=== PATIENT | female | born 1940 | race Caucasian/White ===

== ENCOUNTER 2021-10-27 19:26 | Inpatient (IN) | payer MEDICARE ==
[~2021-10-27] VITALS: Ht 165.1 cm; Wt 71.5 kg
[2021-10-27] MEDS ORDERED: MORPHINE SULFATE 4 MG/ML SYR/VIAL IV ONE (22:00)
[2021-10-27 22:05] LABS: Basophils # (auto) 0 10 ^3/uL (0-0.2); Basophils % (auto) 0.7 % (0.0-2.0); Eosinophils # (auto) 0.1 10 ^3/uL (0-0.8); Eosinophils % (auto) 1.4 % (0.0-7.0); Hematocrit 31.1 % (36.0-46.0); Hemoglobin 10.4 g/dL (12.2-16.2); Lymphocytes # (auto) 1.1 10 ^3/uL (0.4-5.4); Lymphocytes % (auto) 15.3 % (10.0-50.0); Mean Corpuscular Hemoglobin 28.8 pg (28.0-32.0); Mean Corpuscular Hgb Conc. 33.4 g/dL (32.0-36.0); Mean Corpuscular Volume 86.2 fL (80.0-100.0); Monocytes # (auto) 0.4 10 ^3/uL (0-1.3); Monocytes % (auto) 4.9 % (0.0-12.0); Neutrophils # (auto) 5.6 10 ^3/uL (1.6-8.6); Neutrophils % (auto) 77.7 % (37.0-80.0); Nucleated Red Blood Cells % 0.1 %; Red Blood Cells 3.61 10^6/uL (4.0-5.20); White Blood Cell 7.2 10^3/uL (4.4-10.8)
[2021-10-27 22:22] LABS: Albumin 3.5 g/dL (3.4-5.0); Calcium 8.7 mg/dL (8.5-10.1); Magnesium 2.9 mg/dL (1.6-2.6); Potassium 3.9 mmol/L (3.5-5.1)
[2021-10-27 22:28] LABS: INR 0.99 (0.9-1.15); Partial Thromboplastin Time 36.4 sec (23.6-33.0)
[2021-10-27 22:34] LABS: BUN/Creatinine Ratio 13.7; Bilirubin, Total 0.5 mg/dL (0.2-1.0); Total Protein 6.9 g/dL (6.4-8.2)
[2021-10-27] MEDS ORDERED: ASPirin 81 mg TAB PO ONE (22:45)
[2021-10-27] MEDS ORDERED: SODIUM CHLORIDE 0.9% 1,000 ML IV ONE (22:45)
[2021-10-27] MEDS ORDERED: NITROGLYCERIN 0.4 MG SL TAB SL PRN (23:00)
[2021-10-27] MEDS ORDERED: MORPHINE SULFATE INJECTION 2 MG/ML SYRG IV PRN (23:00)
[2021-10-27] MEDS ORDERED: METOPROLOL TARTRATE 25 MG TAB PO ONE (23:00)
[2021-10-27] MEDS ORDERED: ACETAMINOPHEN 325 MG TAB PO PRN (23:00)
[2021-10-27] MEDS ORDERED: DEXTROSE (50%) 50ML SYRG IV PRN (23:00)
[2021-10-28] MEDS: ONDANSETRON HCL 4 MG/2 ML VIAL IV PRN (00:40)
[2021-10-28 06:21] VITALS: BP 143/68
[2021-10-28] MEDS: ACCU-CHEK COMFORT CURVE STRIP VI SCH ×4 (06:45→22:30)
[2021-10-28] MEDS: InsuLIN REG 1unit/0.01ml Soln (100units/ml) SC SCH ×4 (06:45→22:40)
[2021-10-28 09:00] VITALS: BP 143/67
[2021-10-28 09:17] LABS: Basophils # (auto) 0 10 ^3/uL (0-0.2); Basophils % (auto) 0.8 % (0.0-2.0); Eosinophils # (auto) 0.1 10 ^3/uL (0-0.8); Eosinophils % (auto) 1.4 % (0.0-7.0); Hematocrit 30.4 % (36.0-46.0); Hemoglobin 10.2 g/dL (12.2-16.2); Lymphocytes # (auto) 0.8 10 ^3/uL (0.4-5.4); Lymphocytes % (auto) 16.2 % (10.0-50.0); Mean Corpuscular Hemoglobin 29.3 pg (28.0-32.0); Mean Corpuscular Hgb Conc. 33.4 g/dL (32.0-36.0); Mean Corpuscular Volume 87.7 fL (80.0-100.0); Monocytes # (auto) 0.2 10 ^3/uL (0-1.3); Monocytes % (auto) 5.1 % (0.0-12.0); Neutrophils # (auto) 3.6 10 ^3/uL (1.6-8.6); Neutrophils % (auto) 76.5 % (37.0-80.0); Nucleated Red Blood Cells % 0.1 %; Red Blood Cells 3.47 10^6/uL (4.0-5.20); White Blood Cell 4.7 10^3/uL (4.4-10.8)
[2021-10-28] MEDS: VALSARTAN 80 MG TAB PO SCH (09:20)
[2021-10-28] MEDS: ASPirin 81 mg TAB PO SCH (09:20)
[2021-10-28] MEDS: FUROSEMIDE 20 MG TAB PO SCH (09:20)
[2021-10-28] MEDS: APIXABAN 5 MG TAB PO SCH ×2 (09:20→22:29)
[2021-10-28] MEDS: METOPROLOL TARTRATE 25 MG TAB PO SCH ×2 (09:21→22:30)
[2021-10-28] MEDS: PANTOPRAZOLE 40 MG TAB PO SCH (09:21)
[2021-10-28 09:39] LABS: BUN/Creatinine Ratio 14.2; Calcium 8.4 mg/dL (8.5-10.1); Potassium 4.1 mmol/L (3.5-5.1)
[2021-10-28 12:00] VITALS: BP 122/68
[2021-10-28] MEDS ORDERED: HYDROcodone-ACET 5/325MG TAB PO PRN (12:30)
[2021-10-28 12:57] LABS: Cholesterol 113 mg/dL (< 200); HDL Cholesterol 42 mg/dL (40-59); LDL Cholesterol 50 mg/dL (< 100); Triglycerides 161 mg/dL (< 150)
[2021-10-28 16:28] VITALS: BP 128/63
[2021-10-28 17:26] LABS: Urine Bacteria NONE SEEN /hpf (None Seen); Urine Blood Negative /uL (Negative); Urine Specific Gravity 1.003 (1.001-1.035); Urine WBC <1 /hpf (0 - 5)
[2021-10-28 22:00] VITALS: BP 132/64
[2021-10-28] MEDS: ATORVASTATIN 20 MG TAB PO SCH (22:29)
[2021-10-28] MEDS: HYDROcodone-ACET 5/325MG TAB PO PRN (22:30)
[2021-10-29 05:00] VITALS: BP 146/67
[2021-10-29] MEDS: HYDROcodone-ACET 5/325MG TAB PO PRN (06:04)
[2021-10-29] MEDS: ACCU-CHEK COMFORT CURVE STRIP VI SCH ×4 (06:52→21:07)
[2021-10-29] MEDS: InsuLIN REG 1unit/0.01ml Soln (100units/ml) SC SCH ×4 (06:54→21:09)
[2021-10-29 09:00] VITALS: BP 139/73
[2021-10-29] MEDS: ASPirin 81 mg TAB PO SCH (09:24)
[2021-10-29] MEDS: APIXABAN 5 MG TAB PO SCH ×2 (09:25→21:12)
[2021-10-29] MEDS: VALSARTAN 80 MG TAB PO SCH (09:25)
[2021-10-29] MEDS: FUROSEMIDE 20 MG TAB PO SCH (09:25)
[2021-10-29] MEDS: PANTOPRAZOLE 40 MG TAB PO SCH (09:26)
[2021-10-29] MEDS: METOPROLOL TARTRATE 25 MG TAB PO SCH ×2 (09:26→21:18)
[2021-10-29] MEDS: ONDANSETRON HCL 4 MG/2 ML VIAL IV PRN (09:56)
[2021-10-29] MEDS ORDERED: MIDAZOLAM HCL 2MG/2ML 2ml VIAL (1mg/ml) IV ONE (10:15)
[2021-10-29 17:00] VITALS: BP 129/49
[2021-10-29] MEDS: ATORVASTATIN 20 MG TAB PO SCH (21:12)
[2021-10-29 21:55] VITALS: BP 147/69
[2021-10-30 05:27] VITALS: BP 128/56
[2021-10-30] MEDS: ACCU-CHEK COMFORT CURVE STRIP VI SCH (05:56)
[2021-10-30] MEDS: InsuLIN REG 1unit/0.01ml Soln (100units/ml) SC SCH (06:02)
[2021-10-30 08:00] VITALS: BP 132/89
[2021-10-30 08:45] VITALS: BP 132/69
[2021-10-30] MEDS: VALSARTAN 80 MG TAB PO SCH (10:01)
[2021-10-30] MEDS: APIXABAN 5 MG TAB PO SCH (10:01)
[2021-10-30] MEDS: ASPirin 81 mg TAB PO SCH (10:01)
[2021-10-30] MEDS: PANTOPRAZOLE 40 MG TAB PO SCH (10:02)
[2021-10-30] MEDS: FUROSEMIDE 20 MG TAB PO SCH (10:02)
[2021-10-30] MEDS: METOPROLOL TARTRATE 25 MG TAB PO SCH (10:02)
[2021-10-30 11:11] VITALS: BP 128/67
== END 2021-10-30 12:00 | disposition home or self-care (01) | DRG 303 ==
LOC: ER 19:26 → EDBD 19:26 → TELE 22:57 → TELE-WESTW 10-28 05:40
PROVIDERS: ADMIT Nurse Practitioner; ATTEND Family Medicine
PROC: B24BZZ4 Ultrasonography of Heart with Aorta, Transesophageal (ICD-10-PCS; principal; 2021-10-29)
DX: I25.110 Atherosclerotic heart disease of native coronary artery with unstable angina pectoris (principal); N17.9 Acute kidney failure, unspecified; D64.9 Anemia, unspecified; E11.21 Type 2 diabetes mellitus with diabetic nephropathy; E11.40 Type 2 diabetes mellitus with diabetic neuropathy, unspecified; E78.00 Pure hypercholesterolemia, unspecified; I10 Essential (primary) hypertension; Z20.822 Contact with and (suspected) exposure to COVID-19; Z86.73 Personal history of transient ischemic attack (TIA), and cerebral infarction without residual deficits; Z95.0 Presence of cardiac pacemaker; Z88.0 Allergy status to penicillin; Z88.2 Allergy status to sulfonamides
CPT/HCPCS: 36415; 71045; 80048; 80053; 80061; 81001; 82962; 83735; 83880; 84443; 84484; 85025; 85379; 85610; 85730; 87426; 93005; 93306; 93312; 96361; 96374; 96375; 99152; G0378; J1815; J2250; J2405

== ENCOUNTER → 2022-01-05 | Outpatient (CLI) | payer MEDICARE ==
[2022-01-05 14:31] LABS: Basophils # (auto) 0.1 10 ^3/uL (0-0.2); Basophils % (auto) 1.6 % (0.0-2.0); Eosinophils # (auto) 0.2 10 ^3/uL (0-0.8); Eosinophils % (auto) 3.3 % (0.0-7.0); Hematocrit 33.7 % (36.0-46.0); Hemoglobin 11.3 g/dL (12.2-16.2); Lymphocytes % (auto) 20.2 % (10.0-50.0); Mean Corpuscular Hemoglobin 29.7 pg (28.0-32.0); Mean Corpuscular Hgb Conc. 33.6 g/dL (32.0-36.0); Mean Corpuscular Volume 88.3 fL (80.0-100.0); Monocytes # (auto) 0.7 10 ^3/uL (0-1.3); Monocytes % (auto) 13.8 % (0.0-12.0); Neutrophils # (auto) 2.9 10 ^3/uL (1.6-8.6); Neutrophils % (auto) 61.1 % (37.0-80.0); Red Blood Cells 3.82 10^6/uL (4.0-5.20); Red Cell Distribution Width 16.7 % (11.8-14.3); White Blood Cell 4.7 10^3/uL (4.4-10.8)
[2022-01-05 14:46] LABS: Albumin 4.2 g/dL (3.4-5.0); Calcium 10.1 mg/dL (8.5-10.1); Potassium 4.4 mmol/L (3.5-5.1)
[2022-01-05 14:50] LABS: BUN/Creatinine Ratio 13.4; Bilirubin, Total 0.4 mg/dL (0.2-1.0); Total Protein 7.6 g/dL (6.4-8.2)
[2022-01-05 14:59] LABS: INR 1.03 (0.9-1.15)
== END | disposition home or self-care (01) ==
LOC: LAB 14:14
PROVIDERS: ATTEND Internal Medicine
DX: Z01.812 Encounter for preprocedural laboratory examination (principal); E11.9 Type 2 diabetes mellitus without complications; I10 Essential (primary) hypertension
CPT/HCPCS: 36415; 80053; 83036; 84439; 84443; 85025; 85610; 85652

== ENCOUNTER → 2022-01-13 | Outpatient (CLI) | payer MEDICARE ==
[~2022-01-13] VITALS: Ht 170.2 cm; Wt 79.8 kg
[~2022-01-13] MED LIST: ADENOSINE 90 MG/30 ML INJ IV ONE
== END | disposition home or self-care (01) ==
LOC: Rad HDHVI 08:54
PROVIDERS: ATTEND Internal Medicine Cardiovascular Disease
DX: Z01.810 Encounter for preprocedural cardiovascular examination (principal); I10 Essential (primary) hypertension; I25.10 Atherosclerotic heart disease of native coronary artery without angina pectoris; E11.9 Type 2 diabetes mellitus without complications; E78.5 Hyperlipidemia, unspecified; Z82.49 Family history of ischemic heart disease and other diseases of the circulatory system; Z95.0 Presence of cardiac pacemaker
CPT/HCPCS: 78452; 93005; 96374; 96375; A9500; J0153

== ENCOUNTER → 2022-01-17 | Outpatient (CLI) | payer MEDICARE ==
[2022-01-17 11:29] LABS: Urine Bacteria NONE SEEN /hpf (None Seen); Urine Blood Negative /uL (Negative); Urine Hyaline Cast FEW /lpf (0 - 2); Urine WBC 1 /hpf (0 - 5)
== END | disposition home or self-care (01) ==
LOC: LAB 10:26
PROVIDERS: ATTEND Internal Medicine
DX: Z01.812 Encounter for preprocedural laboratory examination (principal); E11.21 Type 2 diabetes mellitus with diabetic nephropathy
CPT/HCPCS: 36415; 81001; 85730

== ENCOUNTER → 2022-08-25 | Outpatient (CLI) | payer MEDICARE ==
[2022-08-25 09:22] LABS: Basophils # (auto) 0.1 10 ^3/uL (0-0.2); Basophils % (auto) 1.3 % (0.0-2.0); Eosinophils # (auto) 0.2 10 ^3/uL (0-0.8); Eosinophils % (auto) 3.9 % (0.0-7.0); Hematocrit 38.7 % (36.0-46.0); Hemoglobin 12.6 g/dL (12.2-16.2); Lymphocytes # (auto) 1.2 10 ^3/uL (0.4-5.4); Lymphocytes % (auto) 21.7 % (10.0-50.0); Mean Corpuscular Hemoglobin 27.6 pg (28.0-32.0); Mean Corpuscular Hgb Conc. 32.5 g/dL (32.0-36.0); Mean Corpuscular Volume 85.2 fL (80.0-100.0); Monocytes # (auto) 0.6 10 ^3/uL (0-1.3); Monocytes % (auto) 11.1 % (0.0-12.0); Neutrophils # (auto) 3.4 10 ^3/uL (1.6-8.6); Red Blood Cells 4.55 10^6/uL (4.0-5.20); Red Cell Distribution Width 14.3 % (11.8-14.3); White Blood Cell 5.5 10^3/uL (4.4-10.8)
[2022-08-25 10:27] LABS: Free T4 (Free Thyroxine) 1.39 ng/dL (0.89-1.76)
[2022-08-25 11:16] LABS: INR 1.01 (0.9-1.15)
[2022-08-25 12:36] LABS: Anion Gap 7 (5-15); Blood Urea Nitrogen 19 mg/dL (7-18); Carbon Dioxide 29 mmol/L (21-32); Chloride 105 mmol/L (98-107); Glucose 123 mg/dL (74-106); Potassium 4.4 mmol/L (3.5-5.1); Sodium 141 mmol/L (136-145)
[2022-08-25 12:37] LABS: Alanine Aminotransferase 19 U/L (13-56); Alkaline Phosphatase 68 U/L (45-117); Aspartate Aminotransferase 16 U/L (15-37); BUN/Creatinine Ratio 12.8; Bilirubin, Total 0.5 mg/dL (0.2-1.0); Calcium 9.5 mg/dL (8.5-10.1); GFR African American 44 mL/min; GFR Non-African American 36 mL/min; Total Protein 7.3 g/dL (6.4-8.2)
[2022-08-25 12:38] LABS: Albumin 3.9 g/dL (3.4-5.0); Cholesterol 158 mg/dL (< 200); HDL Cholesterol 52 mg/dL (40-59); LDL Cholesterol 87 mg/dL (< 100); Magnesium 2.4 mg/dL (1.6-2.6); Triglycerides 159 mg/dL (< 150); Uric Acid 6.9 mg/dL (2.6-6.0)
== END | disposition home or self-care (01) ==
LOC: LAB 08:54
PROVIDERS: ATTEND Internal Medicine
DX: E11.22 Type 2 diabetes mellitus with diabetic chronic kidney disease (principal); N18.30 Chronic kidney disease, stage 3 unspecified; I48.91 Unspecified atrial fibrillation; Z01.812 Encounter for preprocedural laboratory examination
CPT/HCPCS: 36415; 80053; 80061; 82043; 82607; 83036; 83735; 83970; 84439; 84443; 84550; 85025; 85610; 85652

== ENCOUNTER → 2022-11-09 | Outpatient (CLI) | payer MEDICARE ==
[~2022-11-09] MED LIST changes: -ADENOSINE 90 MG/30 ML INJ IV ONE; +levoFLOXacin 500MG 100 ML IV ONE; +methylPREDNISolone SOD SUCC 125 MG/2 ML VL IV ONE; +methylPREDNISolone SOD SUCC 125 MG/2 ML VL ONE
[2022-11-09 13:00] VITALS: BP 181/82
[2022-11-09 14:50] VITALS: BP 164/74
== END | disposition home or self-care (01) ==
LOC: Rad HDHVI 13:00
PROVIDERS: ATTEND Internal Medicine Cardiovascular Disease
DX: R06.02 Shortness of breath (principal); R05.9 Cough, unspecified; I48.91 Unspecified atrial fibrillation; E11.22 Type 2 diabetes mellitus with diabetic chronic kidney disease; N18.30 Chronic kidney disease, stage 3 unspecified
CPT/HCPCS: 71046; 94640; 96365; 96375; G0463; J1956; J2930

== ENCOUNTER 2022-12-21 20:12 | Emergency (ER) | payer MEDICARE ==
[~2022-12-21] VITALS: Ht 165.1 cm; Wt 73.0 kg
[2022-12-21 20:50] VITALS: BP 158/86
[2022-12-21] MEDS ORDERED: CEPH-510 PO (21:37)
== END 2022-12-21 22:10 | disposition home or self-care (01) ==
LOC: ER 20:12 → EDBD 20:12 → ER 22:10
DX: S90.411A Abrasion, right great toe, initial encounter (principal); I11.0 Hypertensive heart disease with heart failure; I50.9 Heart failure, unspecified; E11.9 Type 2 diabetes mellitus without complications; K21.9 Gastro-esophageal reflux disease without esophagitis; Z95.0 Presence of cardiac pacemaker; Z90.710 Acquired absence of both cervix and uterus; Z79.2 Long term (current) use of antibiotics; Z88.0 Allergy status to penicillin; Z88.2 Allergy status to sulfonamides; Z88.8 Allergy status to other drugs, medicaments and biological substances; X58.XXXA Exposure to other specified factors, initial encounter; Y93.89 Activity, other specified; Y92.89 Other specified places as the place of occurrence of the external cause; Y99.8 Other external cause status

== ENCOUNTER → 2023-01-24 | Outpatient (CLI) | payer MEDICARE ==
[~2023-01-24] MED LIST changes: +CEPH-510 PO; -levoFLOXacin 500MG 100 ML IV ONE; -methylPREDNISolone SOD SUCC 125 MG/2 ML VL IV ONE; -methylPREDNISolone SOD SUCC 125 MG/2 ML VL ONE
== END | disposition home or self-care (01) ==
LOC: Rad HDHVI 10:53
PROVIDERS: ATTEND Internal Medicine Cardiovascular Disease
DX: M47.812 Spondylosis without myelopathy or radiculopathy, cervical region (principal); M47.816 Spondylosis without myelopathy or radiculopathy, lumbar region; M48.02 Spinal stenosis, cervical region; M54.50 Low back pain, unspecified; M54.2 Cervicalgia
CPT/HCPCS: 72125; 72131

== ENCOUNTER → 2023-02-14 | Outpatient (CLI) | payer MEDICARE | END | disposition home or self-care (01) | LOC: Rad HDHVI 10:55 | PROVIDERS: ATTEND Internal Medicine Cardiovascular Disease | DX: I10 Essential (primary) hypertension (principal) | CPT/HCPCS: 93880 ==

== ENCOUNTER → 2023-02-16 | Outpatient (CLI) | payer MEDICARE | END | disposition home or self-care (01) | LOC: Rad HDHVI 14:00 | PROVIDERS: ATTEND Internal Medicine Cardiovascular Disease | DX: I08.3 Combined rheumatic disorders of mitral, aortic and tricuspid valves (principal); I11.9 Hypertensive heart disease without heart failure; R06.02 Shortness of breath | CPT/HCPCS: 93306 ==

== ENCOUNTER 2024-04-03 06:38 | Inpatient (IN) | payer MEDICARE ==
[~2024-04-03] VITALS: Ht 165.1 cm; Wt 88.0 kg
[~2024-04-03 06:38] MED LIST changes: +HYDR-4902 PO
[2024-04-03 08:40] LABS: Basophils # (auto) 0.1 10 ^3/uL (0-0.2); Basophils % (auto) 1.8 % (0.0-2.0); Eosinophils # (auto) 0.2 10 ^3/uL (0-0.8); Eosinophils % (auto) 3.1 % (0.0-7.0); Hemoglobin 8.8 g/dL (12.2-16.2); Lymphocytes # (auto) 1.1 10 ^3/uL (0.4-5.4); Mean Corpuscular Hemoglobin 24.7 pg (28.0-32.0); Mean Corpuscular Hgb Conc. 31.4 g/dL (32.0-36.0); Mean Corpuscular Volume 78.6 fL (80.0-100.0); Monocytes # (auto) 0.7 10 ^3/uL (0-1.3); Neutrophils # (auto) 3.4 10 ^3/uL (1.6-8.6); Neutrophils % (auto) 62.1 % (37.0-80.0); Red Blood Cells 3.56 10^6/uL (4.0-5.20); Red Cell Distribution Width 16.4 % (11.8-14.3); White Blood Cell 5.4 10^3/uL (4.4-10.8)
[2024-04-03 08:51] LABS: Alanine Aminotransferase 13 U/L (7-40); Albumin 4.4 g/dL (3.2-4.8); Alkaline Phosphatase 68 U/L (46-116); Anion Gap 8 (5-15); Aspartate Aminotransferase 19 U/L (13-40); BUN/Creatinine Ratio 9.9 (10.0-20.0); Bilirubin, Total 0.6 mg/dL (0.2-1.0); Blood Urea Nitrogen 11 mg/dL (9-23); Calcium 9.6 mg/dL (8.7-10.4); Carbon Dioxide 22 mmol/L (20-30); Chloride 101 mmol/L (98-107); Glucose 149 mg/dL (74-106); Lipase 47 U/L (12-53); Potassium 4.1 mmol/L (3.5-5.1); Sodium 131 mmol/L (136-145); Total Protein 7.1 g/dL (5.7-8.2)
[2024-04-03] MEDS: ALBUTEROL SULF 2.5 MG/0.5ML(0.5%) NEB SOLN NEB ONE (09:23)
[2024-04-03] MEDS: FUROSEMIDE 40 MG/4 ML VIAL IV ONE (10:01)
[2024-04-03] MEDS: traMADol HCL 50 MG TAB PO ONE (10:02)
[2024-04-03] MEDS: AZITHROMYCIN 500MG/ 250ML 250 ML IV ONE (10:54)
[2024-04-03 12:15] LABS: Urine Blood Negative /uL (Negative); Urine Clarity Clear (Clear); Urine Color Colorless (Yellow); Urine Protein, UAD Negative (Negative); Urine Specific Gravity 1.005 (1.001-1.035); Urine Urobilinogen Normal (Negative)
[2024-04-03] MEDS ORDERED: MORPHINE SULFATE INJ 2 MG/ml SYRG IV PRN (13:00)
[2024-04-03] MEDS ORDERED: NITROGLYCERIN 0.4 MG SL TAB SL PRN (13:00)
[2024-04-03] MEDS: SODIUM CHLORIDE 0.9% 1,000 ML IV ONE (13:08)
[2024-04-03 19:30] VITALS: PULSE 76; RESP 16; O2SAT 97
[2024-04-03] MEDS: LACTULOSE 20Gm/30ML SOLN PO SCH (23:00)
[2024-04-03] MEDS: MORPHINE SULFATE 4 MG/ML SYR/VIAL IV PRN (23:30)
[2024-04-04] VITALS (11 sets, daily range): BP systolic 153–171; BP diastolic 65–86; PULSE 74–100; RESP 16–20; TEMP 97.6–98.4; O2SAT 95–100
[2024-04-04] MEDS: levoFLOXacin 500MG 100 ML IV SCH (10:05)
[2024-04-04] MEDS: HYDROcodone-ACET 10/325MG TAB PO PRN (11:34)
[2024-04-04] MEDS ORDERED: METF-370 PO (12:35)
[2024-04-04] MEDS ORDERED: POTA-36 PO (12:35)
[2024-04-04] MEDS ORDERED: FAMO40TA7 PO (12:35)
[2024-04-04] MEDS ORDERED: LATA0.008 EACHEYE (12:35)
[2024-04-04] MEDS ORDERED: MET25T PO (12:35)
[2024-04-04] MEDS ORDERED: FOLI-119 PO (12:35)
[2024-04-04] MEDS ORDERED: SIMV20TA20 PO (12:35)
[2024-04-04] MEDS ORDERED: APIX2.5T PO (12:35)
[2024-04-04] MEDS ORDERED: LOSA-534 PO (12:35)
[2024-04-04] MEDS ORDERED: ESCI5TAB PO (12:35)
[2024-04-04] MEDS ORDERED: FURO40TA4 PO (12:35)
[2024-04-04] MEDS ORDERED: DOCU-94 PO (16:02)
[2024-04-04] MEDS ORDERED: BRIM0.2S2 OP (16:02)
[2024-04-04] MEDS ORDERED: LIDO5PAD12 EX (16:02)
[2024-04-04] MEDS ORDERED: ASPI-543 PO (16:02)
[2024-04-04] MEDS ORDERED: ACET-1881 PO (16:02)
[2024-04-04] MEDS ORDERED: NAPR220C PO (16:02)
[2024-04-04] MEDS: METOCLOPRAMIDE HCL 5MG/ml INJ 2ml VIAL IV PRN (16:43)
[2024-04-04] MEDS: cloNIDine HCL 0.1 MG TAB PO PRN (17:26)
[2024-04-04] MEDS: ONDANSETRON HCL 4 MG/2 ML VIAL IV ONE (20:49)
[2024-04-05] VITALS (8 sets, daily range): BP systolic 107–148; BP diastolic 60–75; PULSE 81–98; RESP 16–19; TEMP 97.6–98.6; O2SAT 99–100
[2024-04-05 15:27] LABS: Basophils # (auto) 0.1 10 ^3/uL (0-0.2); Basophils % (auto) 0.9 % (0.0-2.0); Eosinophils # (auto) 0.2 10 ^3/uL (0-0.8); Eosinophils % (auto) 2.4 % (0.0-7.0); Hemoglobin 8.9 g/dL (12.2-16.2); Lymphocytes # (auto) 0.7 10 ^3/uL (0.4-5.4); Lymphocytes % (auto) 7.9 % (10.0-50.0); Mean Corpuscular Hemoglobin 24.5 pg (28.0-32.0); Mean Corpuscular Hgb Conc. 30.8 g/dL (32.0-36.0); Mean Corpuscular Volume 79.6 fL (80.0-100.0); Monocytes # (auto) 0.9 10 ^3/uL (0-1.3); Monocytes % (auto) 9.1 % (0.0-12.0); Neutrophils # (auto) 7.5 10 ^3/uL (1.6-8.6); Neutrophils % (auto) 79.7 % (37.0-80.0); Nucleated Red Blood Cells % 0.1 %; Red Blood Cells 3.64 10^6/uL (4.0-5.20); Red Cell Distribution Width 15.9 % (11.8-14.3); White Blood Cell 9.4 10^3/uL (4.4-10.8)
[2024-04-05 15:45] LABS: Alanine Aminotransferase 10 U/L (7-40); Albumin 4.2 g/dL (3.2-4.8); Alkaline Phosphatase 67 U/L (46-116); Anion Gap 6 (5-15); Aspartate Aminotransferase 17 U/L (13-40); BUN/Creatinine Ratio 9.8 (10.0-20.0); Bilirubin, Total 0.4 mg/dL (0.2-1.0); Blood Urea Nitrogen 11 mg/dL (9-23); Calcium 9.7 mg/dL (8.5-10.1); Carbon Dioxide 24 mmol/L (20-30); Chloride 104 mmol/L (98-107); Glucose 125 mg/dL (74-106); Potassium 3.8 mmol/L (3.5-5.1); Sodium 134 mmol/L (136-145); Total Protein 6.5 g/dL (5.7-8.2)
[2024-04-05] MEDS: FLEET ENEMA(ADULT) 135 ML PR ONE (17:13)
[2024-04-06] VITALS (8 sets, daily range): BP systolic 126–167; BP diastolic 54–85; PULSE 90–113; RESP 16–21; TEMP 97.7–98.7; O2SAT 97–100
[2024-04-07] VITALS (8 sets, daily range): BP systolic 127–179; BP diastolic 68–86; PULSE 105–125; RESP 16–21; TEMP 97.6–98.4; O2SAT 95–100
[2024-04-07 14:30] LABS: Basophils # (auto) 0 10 ^3/uL (0-0.2); Basophils % (auto) 0.2 % (0.0-2.0); Eosinophils # (auto) 0 10 ^3/uL (0-0.8); Hematocrit 34.7 % (36.0-46.0); Hemoglobin 10.8 g/dL (12.2-16.2); Monocytes # (auto) 1.5 10 ^3/uL (0-1.3); Red Blood Cells 4.43 10^6/uL (4.0-5.20)
[2024-04-07 14:32] LABS: Lymphocytes # (auto) 0.9 10 ^3/uL (0.4-5.4); Lymphocytes % (auto) 5.1 % (10.0-50.0); Mean Corpuscular Hemoglobin 24.4 pg (28.0-32.0); Mean Corpuscular Volume 78.5 fL (80.0-100.0); Neutrophils # (auto) 14.4 10 ^3/uL (1.6-8.6); Neutrophils % (auto) 85.7 % (37.0-80.0); Red Cell Distribution Width 16.3 % (11.8-14.3); White Blood Cell 16.7 10^3/uL (4.4-10.8)
[2024-04-07 14:45] LABS: Alanine Aminotransferase 24 U/L (7-40); Albumin 4.3 g/dL (3.2-4.8); Alkaline Phosphatase 72 U/L (46-116); Anion Gap 13 (5-15); Aspartate Aminotransferase 25 U/L (13-40); BUN/Creatinine Ratio 13.2 (10.0-20.0); Bilirubin, Total 0.4 mg/dL (0.2-1.0); Blood Urea Nitrogen 23 mg/dL (9-23); Calcium 9.9 mg/dL (8.7-10.4); Carbon Dioxide 21 mmol/L (20-30); Chloride 99 mmol/L (98-107); Glucose 226 mg/dL (74-106); Potassium 3.6 mmol/L (3.5-5.1); Sodium 133 mmol/L (136-145); Total Protein 7.1 g/dL (5.7-8.2)
[2024-04-07] MEDS: DIGOXIN (250MCG/ML) 2 ML AMPULE IV ONE (23:38)
[2024-04-08] VITALS (9 sets, daily range): BP systolic 121–153; BP diastolic 57–84; PULSE 78–127; RESP 18–23; TEMP 97.5–98.9; O2SAT 95–100
[2024-04-08] MEDS: HYDROmorphone HCL 2 MG/ML VL/or syr IV ONE (00:44)
[2024-04-08 05:59] LABS: Basophils # (auto) 0 10 ^3/uL (0-0.2); Basophils % (auto) 0.2 % (0.0-2.0); Eosinophils # (auto) 0 10 ^3/uL (0-0.8)
[2024-04-08 06:04] LABS: Eosinophils % (auto) 0.1 % (0.0-7.0); Hematocrit 34.4 % (36.0-46.0); Hemoglobin 10.8 g/dL (12.2-16.2); Lymphocytes # (auto) 1.5 10 ^3/uL (0.4-5.4); Lymphocytes % (auto) 6.9 % (10.0-50.0); Mean Corpuscular Hemoglobin 24.3 pg (28.0-32.0); Mean Corpuscular Hgb Conc. 31.5 g/dL (32.0-36.0); Monocytes # (auto) 2.4 10 ^3/uL (0-1.3); Monocytes % (auto) 11.2 % (0.0-12.0); Neutrophils # (auto) 17.2 10 ^3/uL (1.6-8.6); Neutrophils % (auto) 81.6 % (37.0-80.0); Red Blood Cells 4.47 10^6/uL (4.0-5.20); Red Cell Distribution Width 16.1 % (11.8-14.3); White Blood Cell 21.1 10^3/uL (4.4-10.8)
[2024-04-08 06:26] LABS: Alanine Aminotransferase 21 U/L (7-40); Albumin 4.3 g/dL (3.2-4.8); Alkaline Phosphatase 78 U/L (46-116); Anion Gap 13 (5-15); Aspartate Aminotransferase 24 U/L (13-40); BUN/Creatinine Ratio 16.2 (10.0-20.0); Calcium 9.9 mg/dL (8.7-10.4); Carbon Dioxide 21 mmol/L (20-30); Chloride 98 mmol/L (98-107); Glucose 223 mg/dL (74-106); Potassium 3.7 mmol/L (3.5-5.1); Sodium 132 mmol/L (136-145)
[2024-04-08 06:27] LABS: Bilirubin, Total 0.4 mg/dL (0.2-1.0); Blood Urea Nitrogen 37 mg/dL (9-23); Total Protein 7.1 g/dL (5.7-8.2)
[2024-04-08] MEDS: SODIUM CHLORIDE 0.9% 1,000 ML IV SCH ×2 (06:31→22:36)
[2024-04-08] MEDS: metroNIDAZOLE 500MG/100ML 100 ML IV SCH (06:31)
[2024-04-08] MEDS: levoFLOXacin 250MG 50 ML IV SCH (09:45)
[2024-04-08] MEDS: AZTREONAM 1GM INJ 1 GM in D5W 5% 50 ML IV SCH (11:16)
[2024-04-08] MEDS: VANCOMYCIN 1GM/200ML 200 ML IV ONE (13:13)
[2024-04-08 18:56] LABS: INR 1.13 (0.9-1.15); Partial Thromboplastin Time 28.7 SEC (24.5-34.5); Prothrombin Time 11.9 sec (9.3-11.8)
[2024-04-08] MEDS ORDERED: PROPOFOL 10 MG/ML 20 ML IV ONE (19:01)
[2024-04-08] MEDS ORDERED: LIDOCAINE 2% (LOCAL ANESTH.) PF 5ml SDV ONE (19:01)
[2024-04-08] MEDS ORDERED: GLYCOPYRROLATE 0.2 MG/ML 1ML VIAL ONE (19:01)
[2024-04-08] MEDS ORDERED: ONDANSETRON HCL 4 MG/2 ML VIAL ONE (19:01)
[2024-04-08] MEDS ORDERED: LIDOCAINE HCL 2% TOP JELLY 5ML TOP ONE (19:01)
[2024-04-08] MEDS ORDERED: DexAMETHasone SOD PHOS 10MG/1ML VIAL INJ ONE ×2 (19:01→20:16)
[2024-04-08] MEDS ORDERED: ROCURONIUM 10MG/ML 10ML VIAL IV ONE (19:01)
[2024-04-08] MEDS ORDERED: SUGAMMADEX 200mg/2ml Vial (100MG/ML) IV ONE (19:01)
[2024-04-08] MEDS ORDERED: KETOROLAC TROMETH 30 MG/ML 1ML VIAL ONE (19:01)
[2024-04-08] MEDS ORDERED: fentaNYL CITRATE 100 MCG/2 ML VL ONE (19:02)
[2024-04-08] MEDS ORDERED: KETAMINE 50mg/ML 1ml syringe ONE (19:02)
[2024-04-08] MEDS: BUPIVACAINE HCL 50 ML ONE (19:04)
[2024-04-08] MEDS ORDERED: METOPROLOL TARTRATE 1MG/1ML-5ML VIAL IV ONE (19:11)
[2024-04-08] MEDS ORDERED: EPINEPHrine HCL 1 MG/1 ML AMP ONE (20:16)
[2024-04-08] MEDS ORDERED: oxyCODONE HCL 5MG TAB PO PRN (21:15)
[2024-04-08] MEDS ORDERED: fentaNYL CITRATE 100 MCG/2 ML VL IV PRN (21:15)
[2024-04-08] MEDS ORDERED: NALOXONE HCL 0.4 MG/ML VIAL IV PRN (21:15)
[2024-04-08] MEDS ORDERED: LABETALOL HCL 5 MG/ML 4ML SYRINGE IV PRN (21:15)
[2024-04-08] MEDS ORDERED: hydrALAZINE HCL 20 MG/ML VL IV PRN (21:15)
[2024-04-08] MEDS ORDERED: FLUMAZENIL 0.1 MG/ML INJ 10ML MDV IV PRN (21:15)
[2024-04-08] MEDS ORDERED: ePHEDrine SULFATE 50 MG/ML AMP IV PRN (21:15)
[2024-04-08] MEDS ORDERED: ONDANSETRON HCL 4 MG/2 ML VIAL IV PRN (21:15)
[2024-04-08] MEDS ORDERED: HYDROmorphone HCL 2 MG/ML VL/or syr IV PRN (21:15)
[2024-04-09] VITALS (9 sets, daily range): BP systolic 120–165; BP diastolic 60–72; PULSE 91–101; RESP 17–18; TEMP 97.8–98.1; O2SAT 95–99
[2024-04-09 06:18] LABS: Basophils # (auto) 0 10 ^3/uL (0-0.2); Basophils % (auto) 0.1 % (0.0-2.0); Eosinophils # (auto) 0 10 ^3/uL (0-0.8); Hemoglobin 9.1 g/dL (12.2-16.2); Lymphocytes # (auto) 0.3 10 ^3/uL (0.4-5.4); Mean Corpuscular Hgb Conc. 31.9 g/dL (32.0-36.0); Monocytes # (auto) 0.5 10 ^3/uL (0-1.3)
[2024-04-09 06:24] LABS: Hematocrit 28.6 % (36.0-46.0); Lymphocytes % (auto) 3.4 % (10.0-50.0); Mean Corpuscular Hemoglobin 24.6 pg (28.0-32.0); Mean Corpuscular Volume 77.1 fL (80.0-100.0); Monocytes % (auto) 4.8 % (0.0-12.0); Neutrophils # (auto) 9.3 10 ^3/uL (1.6-8.6); Neutrophils % (auto) 91.7 % (37.0-80.0); Red Blood Cells 3.71 10^6/uL (4.0-5.20); Red Cell Distribution Width 16.1 % (11.8-14.3); White Blood Cell 10.1 10^3/uL (4.4-10.8)
[2024-04-09 06:37] LABS: Alanine Aminotransferase 15 U/L (7-40); Albumin 3.2 g/dL (3.2-4.8); Alkaline Phosphatase 55 U/L (46-116); Anion Gap 11 (5-15); Aspartate Aminotransferase 14 U/L (13-40); BUN/Creatinine Ratio 30.9 (10.0-20.0); Calcium 8.8 mg/dL (8.7-10.4); Carbon Dioxide 21 mmol/L (20-30); Chloride 104 mmol/L (98-107); Glucose 316 mg/dL (74-106); Potassium 3.9 mmol/L (3.5-5.1); Sodium 136 mmol/L (136-145)
[2024-04-09 06:38] LABS: Bilirubin, Total 0.4 mg/dL (0.2-1.0); Total Protein 5.1 g/dL (5.7-8.2)
[2024-04-09 06:42] LABS: Blood Urea Nitrogen 60 mg/dL (9-23)
[2024-04-09] MEDS ORDERED: TPN PER PHARMACY 0 ML IV SCH (09:15)
[2024-04-09 09:29] LABS: Phosphorus 3.8 mg/dL (2.4-5.1)
[2024-04-09] MEDS ORDERED: DEXTROSE (50%) 50ML SYRG IV SCH (10:30)
[2024-04-09] MEDS: InsuLIN REG 1unit/0.01ml Soln (100units/ml) SC SCH (12:00)
[2024-04-09] MEDS: VANCOMYCIN 1GM/200ML 200 ML IV ONE (12:08)
[2024-04-09] MEDS: LIDOCAINE 1% (LOCAL ANESTH.) PF 5ml SDV ID ONE (16:10)
[2024-04-09] MEDS: ACCU-CHEK COMFORT CURVE STRIP VI SCH (17:39)
[2024-04-09] MEDS ORDERED: TPN PER PHARMACY IV NR (20:00)
[2024-04-09] MEDS: AMINO ACID INFUSION IN D5W 1,000 ML IV NR (20:57)
[2024-04-09] MEDS: SODIUM CHLOR 0.9% PF (SALINE LOCK) 10ML VIAL/SYR IV SCH (21:17)
[2024-04-10] VITALS (9 sets, daily range): BP systolic 140–150; BP diastolic 60–73; PULSE 61–94; RESP 18–21; TEMP 97.6–98.7; O2SAT 96–97
[2024-04-10 07:52] LABS: Alanine Aminotransferase 10 U/L (7-40); Albumin 3.4 g/dL (3.2-4.8); Alkaline Phosphatase 51 U/L (46-116); Anion Gap 9 (5-15); Aspartate Aminotransferase 13 U/L (13-40); BUN/Creatinine Ratio 36.5 (10.0-20.0); Bilirubin, Total 0.3 mg/dL (0.2-1.0); Calcium 8.7 mg/dL (8.5-10.1); Carbon Dioxide 23 mmol/L (20-30); Chloride 112 mmol/L (98-107); Glucose 225 mg/dL (74-106); Magnesium 2.3 mg/dL (1.6-2.6); Phosphorus 2.3 mg/dL (2.4-5.1); Potassium 3.2 mmol/L (3.5-5.1); Sodium 144 mmol/L (136-145); Total Protein 5.2 g/dL (5.7-8.2)
[2024-04-10 07:54] LABS: Blood Urea Nitrogen 50 mg/dL (9-23)
[2024-04-10] MEDS ORDERED: POTASSIUM CHL 20MEQ/100ML 100 ML IV ONE (08:15)
[2024-04-10] MEDS: POTASSIUM PHOSPHATE 22 MEQ in SODIUM CHL 0.9% 100 ML IV ONE (09:45)
[2024-04-10] MEDS: VANCOMYCIN PER PHARMACY 0 MG IV SCH (11:37)
[2024-04-10] MEDS: ACETAMINOPHEN IV 1000 MG/100ML (10MG/ML) IV ONE (11:38)
[2024-04-10] MEDS: VANCOMYCIN 1GM/200ML 200 ML IV ONE (12:30)
[2024-04-10] MEDS ORDERED: VANCOMYCIN PER PHARMACY 0 MG IV SCH (15:30)
[2024-04-10] MEDS: TPN PER PHARMACY IV NR (20:37)
[2024-04-11] VITALS (8 sets, daily range): BP systolic 139–179; BP diastolic 58–82; PULSE 62–95; RESP 17–19; TEMP 98–98.6; O2SAT 95–98
[2024-04-11 07:31] LABS: Basophils # (auto) 0 10 ^3/uL (0-0.2); Basophils % (auto) 0.1 % (0.0-2.0); Eosinophils # (auto) 0.1 10 ^3/uL (0-0.8); Monocytes # (auto) 0.9 10 ^3/uL (0-1.3); Nucleated Red Blood Cells % 0.1 %
[2024-04-11 07:33] LABS: Eosinophils % (auto) 1.3 % (0.0-7.0); Hematocrit 26.1 % (36.0-46.0); Hemoglobin 8.3 g/dL (12.2-16.2); Lymphocytes % (auto) 12.9 % (10.0-50.0); Mean Corpuscular Hemoglobin 24.7 pg (28.0-32.0); Mean Corpuscular Hgb Conc. 31.9 g/dL (32.0-36.0); Mean Corpuscular Volume 77.6 fL (80.0-100.0); Monocytes % (auto) 11.5 % (0.0-12.0); Neutrophils # (auto) 5.8 10 ^3/uL (1.6-8.6); Neutrophils % (auto) 74.2 % (37.0-80.0); Red Blood Cells 3.37 10^6/uL (4.0-5.20); Red Cell Distribution Width 16.6 % (11.8-14.3); White Blood Cell 7.9 10^3/uL (4.4-10.8)
[2024-04-11 07:49] LABS: Albumin 3.3 g/dL (3.2-4.8); Alkaline Phosphatase 40 U/L (46-116); Anion Gap 13 (5-15); Aspartate Aminotransferase 12 U/L (13-40); BUN/Creatinine Ratio 36.2 (10.0-20.0); Calcium 8.7 mg/dL (8.7-10.4); Carbon Dioxide 22 mmol/L (20-30); Chloride 114 mmol/L (98-107); Glucose 207 mg/dL (74-106); Magnesium 2.3 mg/dL (1.6-2.6); Potassium 2.8 mmol/L (3.5-5.1)
[2024-04-11 07:50] LABS: Alanine Aminotransferase < 9 U/L (7-40); Bilirubin, Total 0.2 mg/dL (0.2-1.0); Blood Urea Nitrogen 34 mg/dL (9-23); Phosphorus 2.1 mg/dL (2.4-5.1); Sodium 149 mmol/L (136-145); Total Protein 5.1 g/dL (5.7-8.2)
[2024-04-11] MEDS: LACTATED RINGER'S 1,000 ML IV SCH (09:04)
[2024-04-11] MEDS ORDERED: EPOETIN ALFA 10000 UNIT SUBCUT ONE (10:15)
[2024-04-11] MEDS: VANCOMYCIN 1GM/200ML 200 ML IV SCH (10:27)
[2024-04-11] MEDS: MORPHINE SULFATE INJ 2 MG/ml SYRG IV PRN (11:07)
[2024-04-11] MEDS: D5W/SOD CHL 0.45%/KCL 40MEQ 1,000 ML IV ONE (11:31)
[2024-04-11] MEDS: POTASSIUM PHOSPHATE 44 MEQ in D5W 5% 250 ML IV ONE (12:47)
[2024-04-11] MEDS: EPOETIN ALFA-EPBX 10,000 UNIT/1ML VIAL SC ONE (16:24)
[2024-04-11] MEDS: AZTREONAM 1GM INJ 1 GM in D5W 5% 50 ML IV SCH (17:44)
[2024-04-11] MEDS: TPN PER PHARMACY IV NR (20:18)
[2024-04-12] VITALS (10 sets, daily range): BP systolic 127–180; BP diastolic 71–96; PULSE 18–99; RESP 16–22; TEMP 97.3–99; O2SAT 95–100
[2024-04-12 07:38] LABS: Albumin 3.2 g/dL (3.2-4.8); Alkaline Phosphatase 42 U/L (46-116); Calcium 8.6 mg/dL (8.7-10.4); Carbon Dioxide 23 mmol/L (20-30); Chloride 113 mmol/L (98-107)
[2024-04-12 07:39] LABS: Anion Gap 9 (5-15); Aspartate Aminotransferase 14 U/L (13-40); BUN/Creatinine Ratio 27.9 (10.0-20.0); Bilirubin, Total 0.3 mg/dL (0.2-1.0); Glucose 245 mg/dL (74-106); Magnesium 2.1 mg/dL (1.6-2.6); Phosphorus 2.4 mg/dL (2.4-5.1); Potassium 3.5 mmol/L (3.5-5.1); Sodium 145 mmol/L (136-145); Total Protein 5.2 g/dL (5.7-8.2)
[2024-04-12 07:40] LABS: Alanine Aminotransferase < 9 U/L (7-40); Blood Urea Nitrogen 24 mg/dL (9-23)
[2024-04-12] MEDS ORDERED: EPOETIN ALFA 10000 UNIT SC ONE (14:15)
[2024-04-12] MEDS: POTASSIUM PHOSPHATE 22 MEQ in SODIUM CHL 0.9% 100 ML IV ONE (15:50)
[2024-04-12] MEDS: EPOETIN ALFA-EPBX 10,000 UNIT/1ML VIAL SC ONE (16:51)
[2024-04-12] MEDS: TPN PER PHARMACY IV NR (20:00)
[2024-04-12] MEDS ORDERED: ENOXAPARIN SOD 60 MG/0.6 ML SYRINGE SC SCH (22:00)
[2024-04-12] MEDS: ENOXAPARIN SOD 30 MG/0.3 ML SYRINGE SC SCH (22:00)
[2024-04-13] VITALS (9 sets, daily range): BP systolic 141–164; BP diastolic 67–78; PULSE 96–112; RESP 16–20; TEMP 97.3–99; O2SAT 95–99
[2024-04-13 06:37] LABS: Calcium 8.7 mg/dL (8.7-10.4)
[2024-04-13 06:42] LABS: Albumin 3.4 g/dL (3.2-4.8)
[2024-04-13 06:44] LABS: Magnesium 2.2 mg/dL (1.6-2.6)
[2024-04-13 06:45] LABS: Phosphorus 3.3 mg/dL (2.4-5.1)
[2024-04-13] MEDS: TPN PER PHARMACY IV NR (20:19)
[2024-04-14] VITALS (9 sets, daily range): BP systolic 116–155; BP diastolic 63–92; PULSE 60–149; RESP 16–20; TEMP 97.6–104; O2SAT 98–99
[2024-04-14 06:20] LABS: Calcium 8.8 mg/dL (8.5-10.1); Potassium 3.9 mmol/L (3.5-5.1)
[2024-04-14 06:26] LABS: Albumin 3.5 g/dL (3.2-4.8)
[2024-04-14 06:27] LABS: BUN/Creatinine Ratio 42.2 (10.0-20.0); Magnesium 2.6 mg/dL (1.6-2.6)
[2024-04-14 06:29] LABS: Phosphorus 3.4 mg/dL (2.4-5.1)
[2024-04-14] MEDS: PANTOPRAZOLE 40 MG/10 ML VIAL INJ IV ONE (15:12)
[2024-04-14] MEDS: METOCLOPRAMIDE HCL 5MG/ml INJ 2ml VIAL IV ONE (15:45)
[2024-04-14] MEDS: VANCOMYCIN 1GM/200ML 200 ML IV SCH (15:46)
[2024-04-14] MEDS: ONDANSETRON HCL 4 MG/2 ML VIAL IV PRN (18:53)
[2024-04-14] MEDS: TPN PER PHARMACY IV NR (20:19)
[2024-04-14] MEDS: metroNIDAZOLE 500MG/100ML 100 ML IV ONE (21:43)
[2024-04-15] VITALS (8 sets, daily range): BP systolic 116–156; BP diastolic 57–72; PULSE 50–100; RESP 16–18; TEMP 97.1–98.4; O2SAT 97–100
[2024-04-15 07:16] LABS: Alanine Aminotransferase < 9 U/L (7-40); Albumin 3.3 g/dL (3.2-4.8); Alkaline Phosphatase 52 U/L (46-116); Anion Gap 10 (5-15); Aspartate Aminotransferase 20 U/L (13-40); BUN/Creatinine Ratio 34.6 (10.0-20.0); Blood Urea Nitrogen 36 mg/dL (9-23); Calcium 8.8 mg/dL (8.7-10.4); Carbon Dioxide 18 mmol/L (20-30); Chloride 112 mmol/L (98-107); Glucose 213 mg/dL (74-106); Magnesium 2.6 mg/dL (1.6-2.6); Potassium 3.8 mmol/L (3.5-5.1); Sodium 140 mmol/L (136-145)
[2024-04-15 07:17] LABS: Bilirubin, Total 0.3 mg/dL (0.2-1.0); Phosphorus 3.2 mg/dL (2.4-5.1); Total Protein 5.4 g/dL (5.7-8.2)
[2024-04-15] MEDS: METOCLOPRAMIDE HCL 5MG/ml INJ 2ml VIAL IV SCH ×2 (08:43→21:23)
[2024-04-15] MEDS: PANTOPRAZOLE 40 MG/10 ML VIAL INJ IV SCH (08:43)
[2024-04-15] MEDS ORDERED: MORPHINE SULFATE INJ 2 MG/ml SYRG IV PRN (15:30)
[2024-04-15] MEDS: TPN PER PHARMACY IV NR (20:00)
[2024-04-16] VITALS (8 sets, daily range): BP systolic 133–148; BP diastolic 47–65; PULSE 82–94; RESP 14–18; TEMP 97.7–98.1; O2SAT 95–100
[2024-04-16 06:58] LABS: Basophils # (auto) 0.1 10 ^3/uL (0-0.2); Lymphocytes # (auto) 0.9 10 ^3/uL (0.4-5.4); Neutrophils # (auto) 8.5 10 ^3/uL (1.6-8.6); Nucleated Red Blood Cells % 0.1 %
[2024-04-16 07:00] LABS: Basophils % (auto) 0.8 % (0.0-2.0); Eosinophils # (auto) 0.5 10 ^3/uL (0-0.8); Eosinophils % (auto) 4.9 % (0.0-7.0); Hematocrit 26.8 % (36.0-46.0); Hemoglobin 8.3 g/dL (12.2-16.2); Lymphocytes % (auto) 8.5 % (10.0-50.0); Mean Corpuscular Hemoglobin 23.9 pg (28.0-32.0); Mean Corpuscular Hgb Conc. 30.8 g/dL (32.0-36.0); Mean Corpuscular Volume 77.6 fL (80.0-100.0); Monocytes % (auto) 9.1 % (0.0-12.0); Neutrophils % (auto) 76.7 % (37.0-80.0); Red Blood Cells 3.46 10^6/uL (4.0-5.20); Red Cell Distribution Width 17.1 % (11.8-14.3)
[2024-04-16 07:08] LABS: Chloride 115 mmol/L (98-107); Potassium 3.5 mmol/L (3.5-5.1); Sodium 143 mmol/L (136-145)
[2024-04-16 07:09] LABS: Anion Gap 7 (5-15); Calcium 8.7 mg/dL (8.5-10.1); Carbon Dioxide 21 mmol/L (20-30)
[2024-04-16 07:14] LABS: BUN/Creatinine Ratio 49.5 (10.0-20.0); Glucose 180 mg/dL (74-106); Triglycerides 165 mg/dL (< 150)
[2024-04-16 07:15] LABS: Albumin 3.3 g/dL (3.2-4.8); Magnesium 2.3 mg/dL (1.6-2.6)
[2024-04-16 07:16] LABS: Phosphorus 2.7 mg/dL (2.4-5.1)
[2024-04-16 07:17] LABS: Blood Urea Nitrogen 48 mg/dL (9-23)
[2024-04-16] MEDS: MORPHINE SULFATE INJ 2 MG/ml SYRG IV PRN (21:09)
[2024-04-16] MEDS: TPN PER PHARMACY IV NR (21:13)
[2024-04-17] VITALS (8 sets, daily range): BP systolic 111–137; BP diastolic 41–62; PULSE 51–91; RESP 18; TEMP 97.5–98.6; O2SAT 99–100
[2024-04-17 14:01] LABS: Basophils # (auto) 0.1 10 ^3/uL (0-0.2); Eosinophils # (auto) 0.4 10 ^3/uL (0-0.8); Lymphocytes # (auto) 0.8 10 ^3/uL (0.4-5.4); Monocytes # (auto) 0.8 10 ^3/uL (0-1.3); Nucleated Red Blood Cells % 0.2 %
[2024-04-17 14:04] LABS: Basophils % (auto) 0.9 % (0.0-2.0); Eosinophils % (auto) 3.6 % (0.0-7.0); Hematocrit 25.7 % (36.0-46.0); Lymphocytes % (auto) 7.9 % (10.0-50.0); Mean Corpuscular Hemoglobin 24.1 pg (28.0-32.0); Mean Corpuscular Hgb Conc. 31.1 g/dL (32.0-36.0); Mean Corpuscular Volume 77.6 fL (80.0-100.0); Monocytes % (auto) 7.9 % (0.0-12.0); Neutrophils # (auto) 7.8 10 ^3/uL (1.6-8.6); Neutrophils % (auto) 79.7 % (37.0-80.0); Red Blood Cells 3.31 10^6/uL (4.0-5.20); White Blood Cell 9.8 10^3/uL (4.4-10.8)
[2024-04-17 14:11] LABS: Potassium 4.1 mmol/L (3.5-5.1)
[2024-04-17 14:12] LABS: Calcium 8.8 mg/dL (8.5-10.1)
[2024-04-17 14:18] LABS: BUN/Creatinine Ratio 41.7 (10.0-20.0); Magnesium 2.2 mg/dL (1.6-2.6)
[2024-04-17 14:19] LABS: Albumin 2.9 g/dL (3.2-4.8)
[2024-04-17 14:20] LABS: Phosphorus 3.5 mg/dL (2.4-5.1)
[2024-04-18] VITALS (8 sets, daily range): BP systolic 124–151; BP diastolic 46–88; PULSE 71–93; RESP 16–18; TEMP 97.7–98.1; O2SAT 98–100
[2024-04-19] VITALS (7 sets, daily range): BP systolic 130–161; BP diastolic 54–86; PULSE 81–132; RESP 17–18; TEMP 36.6; O2SAT 99–100
[2024-04-19 14:18] LABS: Hemoglobin 8.1 g/dL (12.2-16.2); Lymphocytes # (auto) 0.8 10 ^3/uL (0.4-5.4); Lymphocytes % (auto) 11.4 % (10.0-50.0); Monocytes # (auto) 0.7 10 ^3/uL (0-1.3)
[2024-04-19 14:20] LABS: Basophils # (auto) 0.1 10 ^3/uL (0-0.2); Basophils % (auto) 1.5 % (0.0-2.0); Eosinophils # (auto) 0.3 10 ^3/uL (0-0.8); Eosinophils % (auto) 4.8 % (0.0-7.0); Hematocrit 26.1 % (36.0-46.0); Mean Corpuscular Hemoglobin 23.7 pg (28.0-32.0); Mean Corpuscular Volume 76.5 fL (80.0-100.0); Monocytes % (auto) 9.8 % (0.0-12.0); Neutrophils % (auto) 72.5 % (37.0-80.0); Nucleated Red Blood Cells % 0.2 %; Red Blood Cells 3.41 10^6/uL (4.0-5.20); White Blood Cell 6.8 10^3/uL (4.4-10.8)
[2024-04-19 14:22] LABS: Chloride 110 mmol/L (98-107); Potassium 4.6 mmol/L (3.5-5.1); Sodium 138 mmol/L (136-145)
[2024-04-19 14:23] LABS: Anion Gap 5 (5-15); Carbon Dioxide 23 mmol/L (20-30)
[2024-04-19 14:29] LABS: BUN/Creatinine Ratio 26.4 (10.0-20.0); Blood Urea Nitrogen 24 mg/dL (9-23); Glucose 198 mg/dL (74-106)
[2024-04-19] MEDS: ACETAMINOPHEN 325 MG TAB PO PRN (23:22)
[2024-04-20 08:00] VITALS: PULSE 83; PULSE 92; RESP 18; O2SAT 96
[2024-04-20 09:00] VITALS: BP 107/56; PULSE 92; RESP 18; TEMP 98.1; O2SAT 96
[2024-04-20 13:00] VITALS: BP 141/63; PULSE 89; RESP 18; TEMP 97.7; O2SAT 100
[2024-04-20 17:00] VITALS: BP 150/61; PULSE 86; RESP 17; TEMP 98.1; O2SAT 100
[2024-04-20 20:00] VITALS: PULSE 76; RESP 18; O2SAT 96
[2024-04-20 21:00] VITALS: BP 112/64; PULSE 95; RESP 18; TEMP 97.4; O2SAT 100
[2024-04-21] VITALS (8 sets, daily range): BP systolic 121–149; BP diastolic 50–67; PULSE 83–91; RESP 16–19; TEMP 97.7–98.6; O2SAT 97–100
[2024-04-21] MEDS: TEMAZEPAM 15 MG CAP PO PRN (22:38)
[2024-04-22] VITALS (8 sets, daily range): BP systolic 111–149; BP diastolic 41–67; PULSE 84–102; RESP 16–19; TEMP 97.7–98.9; O2SAT 96–99
[2024-04-22] MEDS: RIVAROXABAN 15 MG TAB PO SCH (10:39)
[2024-04-22] MEDS ORDERED: IOHEXOL 350 MG/ML 100ML IJ ONE (11:34)
[2024-04-22 12:31] LABS: Chloride 106 mmol/L (98-107); Potassium 4.3 mmol/L (3.5-5.1); Sodium 135 mmol/L (136-145)
[2024-04-22 12:32] LABS: Anion Gap 7 (5-15); Calcium 9.3 mg/dL (8.7-10.4); Carbon Dioxide 22 mmol/L (20-30)
[2024-04-22 12:37] LABS: Blood Urea Nitrogen 8 mg/dL (9-23); Glucose 211 mg/dL (74-106)
[2024-04-23] VITALS (10 sets, daily range): BP systolic 100–161; BP diastolic 43–84; PULSE 76–90; RESP 15–20; TEMP 97.7–98.7; O2SAT 94–99
[2024-04-24] VITALS (9 sets, daily range): BP systolic 114–163; BP diastolic 50–66; PULSE 71–89; RESP 17–20; TEMP 97.8–98.5; O2SAT 98–100
[2024-04-25 01:00] VITALS: BP 121/63; PULSE 77; RESP 18; TEMP 98.1; O2SAT 97
[2024-04-25 05:00] VITALS: BP 110/51; PULSE 81; RESP 18; TEMP 98; O2SAT 98
[2024-04-25 08:00] VITALS: PULSE 79; PULSE 89; RESP 20; O2SAT 99
[2024-04-25 08:35] VITALS: BP 125/77; PULSE 89; RESP 20; TEMP 97.8; O2SAT 99
[2024-04-25 11:03] LABS: Urine Bacteria None Seen /hpf (None Seen)
[2024-04-25 11:33] LABS: Urine Blood Negative /uL (Negative); Urine Clarity Clear (Clear); Urine Color Light-Yellow (Yellow); Urine Mucus FEW (None Seen); Urine Protein, UAD Negative (Negative); Urine Specific Gravity 1.008 (1.001-1.035); Urine Urobilinogen Normal (Negative); Urine WBC 3 /hpf (0 - 5); Urine pH 5.5 (5.0-9.0)
[2024-04-25 12:08] LABS: Basophils # (auto) 0 10 ^3/uL (0-0.2); Basophils % (auto) 0.7 % (0.0-2.0); Eosinophils # (auto) 0.2 10 ^3/uL (0-0.8); Hematocrit 29.5 % (36.0-46.0); Hemoglobin 8.6 g/dL (12.2-16.2); Lymphocytes # (auto) 0.8 10 ^3/uL (0.4-5.4); Lymphocytes % (auto) 15.5 % (10.0-50.0); Mean Corpuscular Hemoglobin 23.2 pg (28.0-32.0); Mean Corpuscular Hgb Conc. 29.2 g/dL (32.0-36.0); Mean Corpuscular Volume 79.3 fL (80.0-100.0); Monocytes # (auto) 0.5 10 ^3/uL (0-1.3); Monocytes % (auto) 10.9 % (0.0-12.0); Neutrophils # (auto) 3.4 10 ^3/uL (1.6-8.6); Neutrophils % (auto) 68.9 % (37.0-80.0); Nucleated Red Blood Cells % 0.1 %; Red Blood Cells 3.72 10^6/uL (4.0-5.20); Red Cell Distribution Width 17.1 % (11.8-14.3); White Blood Cell 4.9 10^3/uL (4.4-10.8)
[2024-04-25 12:17] LABS: Alanine Aminotransferase 12 U/L (7-40); Albumin 3.4 g/dL (3.2-4.8); Alkaline Phosphatase 73 U/L (46-116); Anion Gap 4 (5-15); Aspartate Aminotransferase 28 U/L (13-40); Calcium 9.3 mg/dL (8.5-10.1); Carbon Dioxide 24 mmol/L (20-30); Chloride 106 mmol/L (98-107); Glucose 128 mg/dL (74-106); Potassium 4.6 mmol/L (3.5-5.1); Sodium 134 mmol/L (136-145)
[2024-04-25 12:19] LABS: Bilirubin, Total 0.4 mg/dL (0.2-1.0); Total Protein 5.9 g/dL (5.7-8.2)
[2024-04-25 12:24] VITALS: BP 141/65; PULSE 83; RESP 20; TEMP 98.1; O2SAT 100
[2024-04-25 12:28] LABS: BUN/Creatinine Ratio 6.5 (10.0-20.0); Blood Urea Nitrogen < 5 mg/dL (9-23)
[2024-04-25 16:37] VITALS: BP 149/78; PULSE 84; RESP 16; TEMP 98; O2SAT 94
== END 2024-04-25 16:45 | disposition home health service (06) | DRG 330 ==
LOC: EDBD 06:38 → EDSEX 06:38 → ER 06:38 → TELE 12:47 → TELE-WESTW 04-04 05:02
PROVIDERS: ADMIT Internal Medicine Cardiovascular Disease; ATTEND Internal Medicine Cardiovascular Disease
PROC: 0DTF0ZZ Resection of Right Large Intestine, Open Approach (ICD-10-PCS; 2024-04-08)
PROC: 0D1B0Z4 Bypass Ileum to Cutaneous, Open Approach (ICD-10-PCS; 2024-04-08)
PROC: 02HV33Z Insertion of Infusion Device into Superior Vena Cava, Percutaneous Approach (ICD-10-PCS; principal; 2024-04-09)
PROC: B548ZZA Ultrasonography of Superior Vena Cava, Guidance (ICD-10-PCS; 2024-04-09)
DX: K55.9 Vascular disorder of intestine, unspecified (principal); K56.7 Ileus, unspecified; K63.2 Fistula of intestine; K57.92 Diverticulitis of intestine, part unspecified, without perforation or abscess without bleeding; N17.9 Acute kidney failure, unspecified; K59.39 Other megacolon; R33.9 Retention of urine, unspecified; K58.9 Irritable bowel syndrome, unspecified; E11.9 Type 2 diabetes mellitus without complications; I11.0 Hypertensive heart disease with heart failure; I50.9 Heart failure, unspecified; K80.20 Calculus of gallbladder without cholecystitis without obstruction; D35.02 Benign neoplasm of left adrenal gland; D72.829 Elevated white blood cell count, unspecified; I48.91 Unspecified atrial fibrillation; R13.10 Dysphagia, unspecified; E87.6 Hypokalemia; E27.8 Other specified disorders of adrenal gland; I49.5 Sick sinus syndrome; E86.9 Volume depletion, unspecified; I35.0 Nonrheumatic aortic (valve) stenosis; K66.0 Peritoneal adhesions (postprocedural) (postinfection); Z93.2 Ileostomy status; Z95.810 Presence of automatic (implantable) cardiac defibrillator; Z90.710 Acquired absence of both cervix and uterus; Z83.3 Family history of diabetes mellitus; Z82.49 Family history of ischemic heart disease and other diseases of the circulatory system; Z93.3 Colostomy status; Z90.49 Acquired absence of other specified parts of digestive tract; Z95.2 Presence of prosthetic heart valve
CPT/HCPCS: 36415; 36569; 71045; 71275; 74018; 74176; 76705; 80048; 80053; 80069; 80202; 81001; 81003; 82040; 82962; 83690; 83735; 84100; 84478; 85025; 85610; 85730; 86850; 86900; 86901; 87070; 87075; 87205; 92610; 93005; 93970; 94640; 97110; 97116; 97163; 97530; C9113; G0378; J0131; J0171; J1100; J1815; J1885; J1956; J2001; J2405; J2704; J3490; J7060

== ENCOUNTER 2024-04-26 00:09 | Inpatient (IN) | payer MEDICARE ==
[~2024-04-26] VITALS: Ht 172.7 cm; Wt 73.0 kg
[~2024-04-26 00:09] MED LIST changes: +ACET-1881 PO; +APIX2.5T PO; +ASPI-543 PO; +BRIM0.2S2 OP; -CEPH-510 PO; +DOCU-94 PO; +ESCI5TAB PO; +FAMO40TA7 PO; +FOLI-119 PO; +FURO40TA4 PO; -HYDR-4902 PO; +LATA0.008 EACHEYE; +LIDO5PAD12 EX; +LOSA-534 PO; +MET25T PO; +METF-370 PO; +NAPR220C PO; +POTA-36 PO; +SIMV20TA20 PO
[2024-04-26 00:50] VITALS: PULSE 100; RESP 13; O2SAT 100
[2024-04-26 00:56] LABS: Basophils # (auto) 0.1 10 ^3/uL (0-0.2); Eosinophils # (auto) 0.1 10 ^3/uL (0-0.8); Lymphocytes % (auto) 8.8 % (10.0-50.0); Monocytes # (auto) 0.7 10 ^3/uL (0-1.3); Monocytes % (auto) 7.8 % (0.0-12.0); Red Cell Distribution Width 16.9 % (11.8-14.3)
[2024-04-26 00:58] LABS: Basophils % (auto) 1.1 % (0.0-2.0); Hematocrit 25.8 % (36.0-46.0); Hemoglobin 8.2 g/dL (12.2-16.2); Lymphocytes # (auto) 0.8 10 ^3/uL (0.4-5.4); Mean Corpuscular Hemoglobin 23.5 pg (28.0-32.0); Mean Corpuscular Hgb Conc. 31.6 g/dL (32.0-36.0); Mean Corpuscular Volume 74.4 fL (80.0-100.0); Neutrophils % (auto) 81.3 % (37.0-80.0); Red Blood Cells 3.47 10^6/uL (4.0-5.20); White Blood Cell 8.6 10^3/uL (4.4-10.8)
[2024-04-26 01:05] LABS: Alanine Aminotransferase 14 U/L (7-40); Albumin 3.7 g/dL (3.2-4.8); Alkaline Phosphatase 72 U/L (46-116); Anion Gap 11 (5-15); Aspartate Aminotransferase 20 U/L (13-40); BUN/Creatinine Ratio 6.7 (10.0-20.0); Bilirubin, Total 0.4 mg/dL (0.2-1.0); Blood Urea Nitrogen 8 mg/dL (9-23); Calcium 9.5 mg/dL (8.7-10.4); Carbon Dioxide 22 mmol/L (20-30); Chloride 105 mmol/L (98-107); Glucose 188 mg/dL (74-106); Potassium 4.2 mmol/L (3.5-5.1); Sodium 138 mmol/L (136-145); Total Protein 6.2 g/dL (5.7-8.2)
[2024-04-26] MEDS: SODIUM CHLORIDE 0.9% 500 ML IV ONE (08:00)
[2024-04-26 10:35] LABS: Urine Bacteria None Seen /hpf (None Seen)
[2024-04-26 10:50] LABS: Urine Blood Negative /uL (Negative); Urine Clarity Clear (Clear); Urine Color Light-Yellow (Yellow); Urine Hyaline Cast FEW /lpf (0 - 2); Urine Protein, UAD TRACE (Negative); Urine Urobilinogen Normal (Negative); Urine WBC 1 /hpf (0 - 5); Urine pH 5.5 (5.0-9.0)
[2024-04-26] MEDS ORDERED: DOCUSATE SOD 100 MG CAP PO PRN (15:00)
[2024-04-26] MEDS: HYDROcodone-ACET 10/325MG TAB PO ONE (15:44)
[2024-04-26] MEDS: levoFLOXacin 500MG 100 ML IV ONE (15:45)
[2024-04-26] MEDS: DICYCLOMINE HCL 10 MG CAP PO ONE (15:46)
[2024-04-26] MEDS: OMNIPAQUE 12mg/ml 500ml ORAL SOLUTION PO ONE (15:47)
[2024-04-26] MEDS: LATANOPROST 0.005 % OPTH(EYE) SOL 2.5ML EACHEYE SCH (18:00)
[2024-04-26] MEDS ORDERED: DICYCLOMINE HCL 10 MG CAP PO SCH (18:00)
[2024-04-26 18:32] LABS: Creatinine, Urine 28.39 mg/dL (30.0-125.0)
[2024-04-26] MEDS: IOHEXOL 300 MG/ML 100ML BOTTLE IJ ONE (19:22)
[2024-04-26] MEDS ORDERED: DOCUSATE SOD 100 MG CAP PO SCH (22:00)
[2024-04-27] VITALS (9 sets, daily range): BP systolic 100–126; BP diastolic 43–95; PULSE 68–96; RESP 16–20; TEMP 97.7–98.7; O2SAT 95–99
[2024-04-27] MEDS: METOPROLOL TARTRATE 25 MG TAB PO SCH (00:03)
[2024-04-27] MEDS: APIXABAN 2.5 MG TAB PO SCH (00:06)
[2024-04-27 06:30] LABS: Basophils # (auto) 0 10 ^3/uL (0-0.2); Basophils % (auto) 0.7 % (0.0-2.0); Hemoglobin 7.8 g/dL (12.2-16.2); Lymphocytes # (auto) 0.6 10 ^3/uL (0.4-5.4); Monocytes # (auto) 0.6 10 ^3/uL (0-1.3); White Blood Cell 5.4 10^3/uL (4.4-10.8)
[2024-04-27 06:33] LABS: Eosinophils # (auto) 0.3 10 ^3/uL (0-0.8); Eosinophils % (auto) 4.9 % (0.0-7.0); Hematocrit 24.6 % (36.0-46.0); Lymphocytes % (auto) 10.6 % (10.0-50.0); Mean Corpuscular Hgb Conc. 31.8 g/dL (32.0-36.0); Mean Corpuscular Volume 75.4 fL (80.0-100.0); Monocytes % (auto) 11.1 % (0.0-12.0); Neutrophils % (auto) 72.7 % (37.0-80.0); Nucleated Red Blood Cells % 0.1 %; Red Blood Cells 3.26 10^6/uL (4.0-5.20); Red Cell Distribution Width 16.5 % (11.8-14.3)
[2024-04-27 06:50] LABS: Alanine Aminotransferase 11 U/L (7-40); Alkaline Phosphatase 69 U/L (46-116); Anion Gap 9 (5-15); Calcium 9.4 mg/dL (8.7-10.4); Carbon Dioxide 24 mmol/L (20-30); Chloride 105 mmol/L (98-107); Glucose 119 mg/dL (74-106); Potassium 4.3 mmol/L (3.5-5.1); Sodium 138 mmol/L (136-145)
[2024-04-27 06:51] LABS: BUN/Creatinine Ratio 6.2 (10.0-20.0); Blood Urea Nitrogen 5 mg/dL (9-23)
[2024-04-27 06:52] LABS: Albumin 3.4 g/dL (3.2-4.8); Aspartate Aminotransferase 20 U/L (13-40)
[2024-04-27 06:53] LABS: Bilirubin, Total 0.4 mg/dL (0.2-1.0); Total Protein 5.8 g/dL (5.7-8.2)
[2024-04-27] MEDS ORDERED: levoFLOXacin 500MG 100 ML IV SCH (10:00)
[2024-04-27] MEDS: Simvastatin 20 MG TAB PO SCH (10:00)
[2024-04-27] MEDS: levoFLOXacin 250MG 50 ML IV SCH (10:17)
[2024-04-27] MEDS: FOLIC ACID 1 MG TAB PO SCH (10:17)
[2024-04-27] MEDS: ASPirin-EC 81 mg tab PO SCH (10:18)
[2024-04-27] MEDS: CITALOPRAM HYDROBR 20 MG TAB PO SCH (10:18)
[2024-04-27] MEDS: FAMOTIDINE 20 MG TAB PO SCH (10:19)
[2024-04-27] MEDS: FUROSEMIDE 40 MG TAB PO SCH (10:25)
[2024-04-27] MEDS: LOSARTAN POTASSIUM 50 MG TAB PO SCH (10:25)
[2024-04-27] MEDS: HYDROcodone-ACET 5/325MG TAB PO PRN (17:52)
[2024-04-28] VITALS (8 sets, daily range): BP systolic 110–144; BP diastolic 54–63; PULSE 63–76; RESP 16–20; TEMP 97.6–98.2; O2SAT 97–100
[2024-04-28] MEDS: MORPHINE SULFATE INJ 2 MG/ml SYRG IV PRN (14:43)
[2024-04-28] MEDS: ONDANSETRON HCL 4 MG/2 ML VIAL IV PRN (14:49)
[2024-04-29] VITALS (7 sets, daily range): BP systolic 103–131; BP diastolic 38–50; PULSE 60–69; RESP 16–18; TEMP 97.6–97.9; O2SAT 96–100
[2024-04-29 09:48] LABS: Basophils # (auto) 0 10 ^3/uL (0-0.2); Eosinophils # (auto) 0.2 10 ^3/uL (0-0.8); Hemoglobin 7.8 g/dL (12.2-16.2); Monocytes # (auto) 0.5 10 ^3/uL (0-1.3); Monocytes % (auto) 12.9 % (0.0-12.0); Neutrophils # (auto) 2.5 10 ^3/uL (1.6-8.6)
[2024-04-29 09:50] LABS: Basophils % (auto) 0.4 % (0.0-2.0); Eosinophils % (auto) 5.8 % (0.0-7.0); Hematocrit 24.6 % (36.0-46.0); Lymphocytes # (auto) 0.9 10 ^3/uL (0.4-5.4); Mean Corpuscular Hemoglobin 23.6 pg (28.0-32.0); Mean Corpuscular Hgb Conc. 31.7 g/dL (32.0-36.0); Mean Corpuscular Volume 74.4 fL (80.0-100.0); Neutrophils % (auto) 59.9 % (37.0-80.0); Nucleated Red Blood Cells % 0.1 %; Red Cell Distribution Width 16.7 % (11.8-14.3); White Blood Cell 4.2 10^3/uL (4.4-10.8)
[2024-04-29 10:14] LABS: Albumin 3.5 g/dL (3.2-4.8); Alkaline Phosphatase 62 U/L (46-116); Anion Gap 4 (5-15); Aspartate Aminotransferase 15 U/L (13-40); BUN/Creatinine Ratio 6.3 (10.0-20.0); Bilirubin, Total 0.3 mg/dL (0.2-1.0); Blood Urea Nitrogen 7 mg/dL (9-23); Calcium 8.9 mg/dL (8.5-10.1); Carbon Dioxide 27 mmol/L (20-30); Chloride 104 mmol/L (98-107); Glucose 110 mg/dL (74-106); Potassium 4.2 mmol/L (3.5-5.1); Sodium 135 mmol/L (136-145); Total Protein 5.7 g/dL (5.7-8.2)
[2024-04-29 10:26] LABS: Alanine Aminotransferase < 9 U/L (7-40)
[2024-04-29] MEDS ORDERED: DEXTROSE (50%) 50ML SYRG IV PRN (11:30)
[2024-04-29] MEDS: PANTOPRAZOLE 40 MG/10 ML VIAL INJ IV ONE (11:30)
[2024-04-29] MEDS: ACCU-CHEK COMFORT CURVE STRIP VI SCH (12:00)
[2024-04-29] MEDS: SODIUM FERR GLUC 62.5MG/5ML 110 ML IV SCH (12:00)
[2024-04-29] MEDS: InsuLIN REG 1unit/0.01ml Soln (100units/ml) SC SCH (12:00)
[2024-04-29] MEDS: EPOETIN ALFA-EPBX 10,000 UNIT/1ML VIAL SC ONE (14:00)
[2024-04-29] MEDS: RIVAROXABAN 20 MG TAB PO SCH (18:55)
[2024-04-29] MEDS ORDERED: RIVAROXABAN 20 MG TAB PO SCH (20:00)
[2024-04-30] VITALS (7 sets, daily range): BP systolic 105–141; BP diastolic 34–74; PULSE 65–77; RESP 17–22; TEMP 97.6–98.7; O2SAT 98–100
[2024-04-30 07:14] LABS: Anion Gap 8 (5-15); Calcium 9.2 mg/dL (8.7-10.4); Carbon Dioxide 25 mmol/L (20-30); Chloride 103 mmol/L (98-107); Sodium 136 mmol/L (136-145)
[2024-04-30 07:18] LABS: Basophils # (auto) 0 10 ^3/uL (0-0.2); Eosinophils # (auto) 0.2 10 ^3/uL (0-0.8); Hemoglobin 8.1 g/dL (12.2-16.2); Lymphocytes # (auto) 0.7 10 ^3/uL (0.4-5.4); Monocytes # (auto) 0.7 10 ^3/uL (0-1.3); Red Cell Distribution Width 16.7 % (11.8-14.3)
[2024-04-30 07:20] LABS: BUN/Creatinine Ratio 8.4 (10.0-20.0); Basophils % (auto) 0.5 % (0.0-2.0); Blood Urea Nitrogen 8 mg/dL (9-23); Eosinophils % (auto) 4.2 % (0.0-7.0); Glucose 117 mg/dL (74-106); Hematocrit 25.2 % (36.0-46.0); Lymphocytes % (auto) 15.2 % (10.0-50.0); Mean Corpuscular Hemoglobin 23.7 pg (28.0-32.0); Mean Corpuscular Hgb Conc. 32.2 g/dL (32.0-36.0); Mean Corpuscular Volume 73.6 fL (80.0-100.0); Monocytes % (auto) 14.6 % (0.0-12.0); Neutrophils # (auto) 3.1 10 ^3/uL (1.6-8.6); Neutrophils % (auto) 65.5 % (37.0-80.0); Nucleated Red Blood Cells % 0.1 %; Red Blood Cells 3.42 10^6/uL (4.0-5.20); White Blood Cell 4.7 10^3/uL (4.4-10.8)
[2024-04-30] MEDS: PANTOPRAZOLE 40 MG/10 ML VIAL INJ IV SCH (11:24)
[2024-04-30] MEDS ORDERED: RIV20T PO (15:21)
[2024-04-30] MEDS: ALPRAZolam 0.25 MG TAB PO PRN (21:03)
[2024-05-01] VITALS (8 sets, daily range): BP systolic 106–131; BP diastolic 39–55; PULSE 63–77; RESP 16–18; TEMP 97.6–98.3; O2SAT 96–100
[2024-05-01] MEDS: IRON SUCROSE COMPLEX 100 ML IV SCH (12:00)
[2024-05-02] VITALS (8 sets, daily range): BP systolic 101–125; BP diastolic 35–67; PULSE 60–70; RESP 16–20; TEMP 97.2–98.4; O2SAT 91–100
[2024-05-03] VITALS (8 sets, daily range): BP systolic 108–142; BP diastolic 36–87; PULSE 16–100; RESP 16–65; TEMP 97.7–98.2; O2SAT 90–100
[2024-05-03] MEDS: HYOSCYAMINE SULF 0.125 MG ODT TAB PO PRN (14:59)
[2024-05-03 15:00] LABS: Chloride 104 mmol/L (98-107); Potassium 3.9 mmol/L (3.5-5.1); Sodium 134 mmol/L (136-145)
[2024-05-03 15:01] LABS: Anion Gap 7 (5-15); Calcium 9.5 mg/dL (8.5-10.1); Carbon Dioxide 23 mmol/L (20-30)
[2024-05-03 15:06] LABS: BUN/Creatinine Ratio 10.6 (10.0-20.0); Blood Urea Nitrogen 11 mg/dL (9-23); Glucose 110 mg/dL (74-106)
[2024-05-03 16:14] LABS: Basophils # (auto) 0 10 ^3/uL (0-0.2); Basophils % (auto) 0.9 % (0.0-2.0); Eosinophils # (auto) 0.2 10 ^3/uL (0-0.8); Eosinophils % (auto) 3.6 % (0.0-7.0); Hematocrit 28.5 % (36.0-46.0); Hemoglobin 8.8 g/dL (12.2-16.2); Lymphocytes # (auto) 1.2 10 ^3/uL (0.4-5.4); Lymphocytes % (auto) 25.4 % (10.0-50.0); Mean Corpuscular Hemoglobin 23.6 pg (28.0-32.0); Mean Corpuscular Hgb Conc. 30.8 g/dL (32.0-36.0); Mean Corpuscular Volume 76.8 fL (80.0-100.0); Monocytes # (auto) 0.6 10 ^3/uL (0-1.3); Monocytes % (auto) 12.3 % (0.0-12.0); Neutrophils # (auto) 2.6 10 ^3/uL (1.6-8.6); Neutrophils % (auto) 57.8 % (37.0-80.0); Nucleated Red Blood Cells % 0.2 %; Red Blood Cells 3.71 10^6/uL (4.0-5.20); Red Cell Distribution Width 17.4 % (11.8-14.3); White Blood Cell 4.6 10^3/uL (4.4-10.8)
[2024-05-03] MEDS: LORazepam 2MG/ML-1ML VIAL IV ONE (17:03)
[2024-05-04] VITALS (8 sets, daily range): BP systolic 94–123; BP diastolic 31–96; PULSE 68–101; RESP 16–20; TEMP 97.9–98.8; O2SAT 97–100
[2024-05-04] MEDS: FLUCONAZOLE 100 MG TAB PO SCH (08:56)
[2024-05-04] MEDS: SODIUM CHLORIDE 0.9% 1,000 ML IV SCH (17:05)
[2024-05-04] MEDS ORDERED: Ensure HIGH Protein Chocolate 8oz Bottle PO SCH (18:00)
[2024-05-05 00:54] VITALS: BP 98/46; PULSE 69; RESP 18; TEMP 98.4; O2SAT 100
[2024-05-05 05:00] VITALS: BP 116/47; PULSE 68; RESP 18; TEMP 97.7; O2SAT 95
[2024-05-05 08:00] VITALS: PULSE 68; RESP 18; O2SAT 100
== END 2024-05-05 09:25 | DRG 690 ==
LOC: ER 00:09 → EDBD 00:09 → OVERFLOW 16:04 → WEST WING 16:04
PROVIDERS: ADMIT Internal Medicine; ATTEND Internal Medicine
DX: N30.00 Acute cystitis without hematuria (principal); N17.9 Acute kidney failure, unspecified; K80.20 Calculus of gallbladder without cholecystitis without obstruction; K57.30 Diverticulosis of large intestine without perforation or abscess without bleeding; I11.0 Hypertensive heart disease with heart failure; D64.9 Anemia, unspecified; G89.29 Other chronic pain; I50.9 Heart failure, unspecified; K58.9 Irritable bowel syndrome, unspecified; E11.9 Type 2 diabetes mellitus without complications; R33.9 Retention of urine, unspecified; Z93.2 Ileostomy status; Z79.84 Long term (current) use of oral hypoglycemic drugs; Z79.899 Other long term (current) drug therapy; Z88.0 Allergy status to penicillin; Z93.3 Colostomy status; Z95.0 Presence of cardiac pacemaker; Z90.710 Acquired absence of both cervix and uterus; Z79.01 Long term (current) use of anticoagulants; Z87.891 Personal history of nicotine dependence; Z86.718 Personal history of other venous thrombosis and embolism; Z95.2 Presence of prosthetic heart valve; Z90.49 Acquired absence of other specified parts of digestive tract
CPT/HCPCS: 36415; 74176; 74177; 80048; 80053; 81001; 82570; 82962; 84300; 85025; 87081; 87086; 93005; 97110; 97116; 97163; 97530; C9113; G0378; J1756; J1815; J1956; J2405

== ENCOUNTER 2024-07-29 14:48 | Inpatient (IN) | payer MEDICARE ==
[~2024-07-29] VITALS: Ht 165.1 cm; Wt 78.0 kg
[~2024-07-29 14:48] MED LIST changes: +AMIO200T43 PO; +AMLO1TAB22 PO; +APIX5TAB PO; +BRIM0.2S2 EACHEYE; +CHOL50007 PO; +ESCI10TA PO; +GABA-1250 PO; +LORA-622 PO; +MET50T PO; +METF-929 PO; +METH2.5T PO; +METO25TA93 PO; +MULT-1018 PO; +NITR100C6 PO; +PANT40T PO; +PERCOT PO; +POTA-228 PO; +RIV20T PO; +TRAM50TA2 PO; +VALS1TAB58 PO
[2024-07-29] MEDS: HYDROcodone-ACET 5/325MG TAB PO ONE (16:02)
[2024-07-29 16:40] LABS: Hematocrit 36.7 % (36.0-46.0); Hemoglobin 12.1 g/dL (12.2-16.2); Mean Corpuscular Hemoglobin 25.8 pg (28.0-32.0); Mean Corpuscular Volume 78.1 fL (80.0-100.0); Platelet Count (auto) 374 10^3/uL (140-450); Red Cell Distribution Width 18.7 % (11.8-14.3); White Blood Cell 21.4 10^3/uL (4.4-10.8)
[2024-07-29 16:44] LABS: Alanine Aminotransferase 16 U/L (7-40); Albumin 4.9 g/dL (3.2-4.8); Alkaline Phosphatase 76 U/L (46-116); Anion Gap 12 (5-15); Aspartate Aminotransferase 18 U/L (13-40); BUN/Creatinine Ratio 20.2 (10.0-20.0); Basophils % (manual) 0 (0.0-2.0); Bilirubin, Total 0.8 mg/dL (0.2-1.0); Blast Cells 0; Blood Urea Nitrogen 41 mg/dL (9-23); Calcium 10.3 mg/dL (8.7-10.4); Carbon Dioxide 19 mmol/L (20-30); Chloride 97 mmol/L (98-107); Glucose 178 mg/dL (74-106); Lymphocytes % (manual) 0 (10.0-50.0); Metamyelocytes % 0; Myelocytes % 0; Potassium 3.9 mmol/L (3.5-5.1); Promyelocytes % 0; Reactive Lymphocytes 0; Sodium 128 mmol/L (136-145); Total Protein 7.8 g/dL (5.7-8.2)
[2024-07-29 18:53] LABS: Band Neutrophils % (manual) 7; Eosinophils % (manual) 1 (0-7); Monocytes % (manual) 3 (0-12); Platelet Estimate Adequate
[2024-07-29] MEDS ORDERED: DEXTROSE (50%) 50ML SYRG IV PRN (21:00)
[2024-07-29] MEDS ORDERED: DOCUSATE SOD 100 MG CAP PO PRN (21:00)
[2024-07-29] MEDS ORDERED: ONDANSETRON HCL 4 MG/2 ML VIAL IV PRN (21:00)
[2024-07-29] MEDS ORDERED: ACETAMINOPHEN 325 MG TAB PO PRN (21:00)
[2024-07-29] MEDS ORDERED: MORPHINE SULFATE INJ 2 MG/ml SYRG IV PRN (21:45)
[2024-07-29] MEDS ORDERED: NITROGLYCERIN 0.4 MG SL TAB SL PRN (21:45)
[2024-07-29] MEDS: cefTRIAXone 1GM/50ML D5W 50 ML IV ONE (22:11)
[2024-07-29] MEDS: ACCU-CHEK COMFORT CURVE STRIP VI SCH (22:11)
[2024-07-29] MEDS: SODIUM CHLORIDE 0.9% 1,000 ML IV SCH (23:00)
[2024-07-29] MEDS: InsuLIN REG 1unit/0.01ml Soln (100units/ml) SC SCH (23:08)
[2024-07-29] MEDS: ATORVASTATIN 20 MG TAB PO SCH (23:08)
[2024-07-29] MEDS: FAMOTIDINE (10MG/ML) 2ML VL IV SCH (23:10)
[2024-07-30] VITALS (8 sets, daily range): BP systolic 99–118; BP diastolic 52–89; PULSE 81–102; RESP 14–19; TEMP 97.6–98.2; O2SAT 95–99
[2024-07-30] MEDS: HYDROcodone-ACET 5/325MG TAB PO PRN (02:47)
[2024-07-30 08:36] LABS: Basophils # (auto) 0.1 10 ^3/uL (0-0.2); Eosinophils # (auto) 0.5 10 ^3/uL (0-0.8); Hemoglobin 11.1 g/dL (12.2-16.2); Lymphocytes # (auto) 0.3 10 ^3/uL (0.4-5.4)
[2024-07-30 08:37] LABS: Basophils % (auto) 0.7 % (0.0-2.0); Eosinophils % (auto) 4.4 % (0.0-7.0); Mean Corpuscular Hemoglobin 26.7 pg (28.0-32.0); Mean Corpuscular Hgb Conc. 33.8 g/dL (32.0-36.0); Mean Corpuscular Volume 79.1 fL (80.0-100.0); Monocytes # (auto) 0.7 10 ^3/uL (0-1.3); Monocytes % (auto) 6.1 % (0.0-12.0); Neutrophils # (auto) 9.8 10 ^3/uL (1.6-8.6); Neutrophils % (auto) 85.8 % (37.0-80.0); Platelet Count (auto) 299 10^3/uL (140-450); Red Blood Cells 4.17 10^6/uL (4.0-5.20); Red Cell Distribution Width 18.8 % (11.8-14.3); White Blood Cell 11.4 10^3/uL (4.4-10.8)
[2024-07-30 08:47] LABS: Alanine Aminotransferase 15 U/L (7-40); Albumin 4.3 g/dL (3.2-4.8); Alkaline Phosphatase 65 U/L (46-116); Anion Gap 8 (5-15); Blood Urea Nitrogen 42 mg/dL (9-23); Calcium 9.6 mg/dL (8.7-10.4); Carbon Dioxide 20 mmol/L (20-30); Chloride 99 mmol/L (98-107); Glucose 128 mg/dL (74-106); Magnesium 2.1 mg/dL (1.6-2.6); Potassium 3.6 mmol/L (3.5-5.1); Sodium 127 mmol/L (136-145)
[2024-07-30 08:48] LABS: Aspartate Aminotransferase 17 U/L (13-40); Bilirubin, Total 0.5 mg/dL (0.2-1.0); Phosphorus 4.3 mg/dL (2.4-5.1); Total Protein 6.8 g/dL (5.7-8.2)
[2024-07-30] MEDS: ASPirin 81 mg TAB PO SCH (09:10)
[2024-07-30] MEDS: cefTRIAXone 1GM/50ML D5W 50 ML IV SCH (09:11)
[2024-07-30] MEDS ORDERED: SODIUM CHLORIDE 0.9% 1,000 ML IV SCH ×2 (09:45→10:15)
[2024-07-30] MEDS ORDERED: METF-370 PO (10:17)
[2024-07-30 10:39] LABS: INR 1.09 (0.9-1.15); Partial Thromboplastin Time 35.4 SEC (24.5-34.5); Prothrombin Time 11.5 sec (9.3-11.8)
[2024-07-30] MEDS: SODIUM CHLORIDE 0.9% 1,000 ML IV ONE (11:45)
[2024-07-30 14:39] LABS: Chloride 99 mmol/L (98-107); Potassium 3.8 mmol/L (3.5-5.1); Sodium 128 mmol/L (136-145)
[2024-07-30 14:40] LABS: Anion Gap 9 (5-15); Carbon Dioxide 20 mmol/L (20-30)
[2024-07-30 14:45] LABS: BUN/Creatinine Ratio 20.5 (10.0-20.0); Blood Urea Nitrogen 39 mg/dL (9-23); Glucose 169 mg/dL (74-106); Triglycerides 128 mg/dL (< 150)
[2024-07-30 14:46] LABS: LDL Cholesterol 69 mg/dL (< 100)
[2024-07-30 14:47] LABS: Cholesterol 131 mg/dL (< 200); HDL Cholesterol 40 mg/dL (40-59)
[2024-07-30 18:27] LABS: Folate (Folic Acid) 44.99 ng/mL (>5.38)
[2024-07-31] VITALS (7 sets, daily range): BP systolic 108–116; BP diastolic 56–74; PULSE 82–93; RESP 17–18; TEMP 97.6–97.8; O2SAT 97–100
[2024-07-31 01:01] LABS: COVID19 ANTIGEN SOFIA FIA NEGATIVE (NEGATIVE)
[2024-07-31 01:02] LABS: Rapid Influenza A Negative (Negative); Rapid Influenza B Negative (Negative)
[2024-07-31 07:20] LABS: Chloride 103 mmol/L (98-107); Potassium 3.6 mmol/L (3.5-5.1); Sodium 131 mmol/L (136-145)
[2024-07-31 07:21] LABS: Anion Gap 8 (5-15); Calcium 9.2 mg/dL (8.7-10.4); Carbon Dioxide 20 mmol/L (20-30)
[2024-07-31 07:26] LABS: BUN/Creatinine Ratio 23.5 (10.0-20.0); Blood Urea Nitrogen 38 mg/dL (9-23); Glucose 131 mg/dL (74-106)
[2024-07-31] MEDS: SODIUM CHLORIDE 0.9% 1,000 ML IV SCH (11:45)
[2024-07-31 11:48] LABS: Basophils # (auto) 0 10 ^3/uL (0-0.2); Basophils % (auto) 0.6 % (0.0-2.0); Eosinophils # (auto) 0.5 10 ^3/uL (0-0.8); Eosinophils % (auto) 8.8 % (0.0-7.0); Hemoglobin 9.6 g/dL (12.2-16.2); Lymphocytes # (auto) 0.7 10 ^3/uL (0.4-5.4); Mean Corpuscular Hemoglobin 27.1 pg (28.0-32.0); Mean Corpuscular Hgb Conc. 34.3 g/dL (32.0-36.0); Mean Corpuscular Volume 79.1 fL (80.0-100.0); Monocytes # (auto) 0.6 10 ^3/uL (0-1.3); Monocytes % (auto) 11.6 % (0.0-12.0); Neutrophils # (auto) 3.3 10 ^3/uL (1.6-8.6); Platelet Count (auto) 260 10^3/uL (140-450); Red Blood Cells 3.54 10^6/uL (4.0-5.20); Red Cell Distribution Width 18.1 % (11.8-14.3); White Blood Cell 5.1 10^3/uL (4.4-10.8)
[2024-07-31 14:04] LABS: Sodium Urine < 10 mmol/L (40-220)
[2024-07-31 14:07] LABS: Urine Bacteria FEW /hpf (None Seen); Urine Blood 1+ /uL (Negative); Urine Budding Yeast MANY /hpf (None Seen); Urine Clarity Ex.Turbid (Clear); Urine Color Colorless (Yellow); Urine Protein, UAD 1+ (Negative); Urine Specific Gravity 1.012 (1.001-1.035); Urine Urobilinogen Normal (Negative); Urine WBC 549 /hpf (0 - 5); Urine pH 5.5 (5.0-9.0)
[2024-07-31 14:09] LABS: Protein, Urine 46.2 mg/dL (0.0-11.9)
[2024-07-31 14:11] LABS: Creatinine, Urine 86.95 mg/dL (30.0-125.0); Urine Protein/Creatinine Ratio 0.53
[2024-07-31] MEDS ORDERED: RIVAROXABAN 15 MG TAB PO SCH (18:00)
[2024-07-31] MEDS: RIVAROXABAN 15 MG TAB PO SCH (18:15)
[2024-08-01] VITALS (8 sets, daily range): BP systolic 114–133; BP diastolic 53–73; PULSE 71–86; RESP 17–19; TEMP 97.7–98.3; O2SAT 97–99
[2024-08-01 07:28] LABS: Basophils # (auto) 0 10 ^3/uL (0-0.2); Eosinophils # (auto) 0.5 10 ^3/uL (0-0.8); Hemoglobin 9.4 g/dL (12.2-16.2); Lymphocytes # (auto) 0.8 10 ^3/uL (0.4-5.4); Monocytes # (auto) 0.5 10 ^3/uL (0-1.3); White Blood Cell 4.7 10^3/uL (4.4-10.8)
[2024-08-01 07:30] LABS: Anion Gap 10 (5-15); Carbon Dioxide 18 mmol/L (20-30); Chloride 108 mmol/L (98-107); Potassium 4.2 mmol/L (3.5-5.1); Sodium 136 mmol/L (136-145)
[2024-08-01 07:32] LABS: Basophils % (auto) 0.8 % (0.0-2.0); Eosinophils % (auto) 10.6 % (0.0-7.0); Hematocrit 28.2 % (36.0-46.0); Lymphocytes % (auto) 16.4 % (10.0-50.0); Mean Corpuscular Hemoglobin 26.7 pg (28.0-32.0); Mean Corpuscular Hgb Conc. 33.4 g/dL (32.0-36.0); Mean Corpuscular Volume 79.8 fL (80.0-100.0); Neutrophils # (auto) 2.9 10 ^3/uL (1.6-8.6); Neutrophils % (auto) 61.2 % (37.0-80.0); Nucleated Red Blood Cells % 0.2 %; Platelet Count (auto) 273 10^3/uL (140-450); Red Blood Cells 3.53 10^6/uL (4.0-5.20); Red Cell Distribution Width 18.3 % (11.8-14.3)
[2024-08-01 07:36] LABS: BUN/Creatinine Ratio 23.2 (10.0-20.0); Blood Urea Nitrogen 29 mg/dL (9-23); Glucose 114 mg/dL (74-106)
[2024-08-01 12:28] LABS: Base Excess -2.3 mmol/L (-2.0-3.0)
[2024-08-01] MEDS: FLUCONAZOLE 100 MG TAB PO ONE (12:36)
[2024-08-01 14:21] LABS: % Iron Saturation 3.7 % (15-50)
[2024-08-01] MEDS: EPOETIN ALFA-EPBX 10,000 UNIT/1ML VIAL SC ONE (17:26)
[2024-08-02] VITALS (7 sets, daily range): BP systolic 119–130; BP diastolic 54–62; PULSE 71–81; RESP 18; TEMP 97.8–98.2; O2SAT 97–100
[2024-08-02 07:13] LABS: Basophils # (auto) 0.1 10 ^3/uL (0-0.2); Basophils % (auto) 1.2 % (0.0-2.0); Eosinophils # (auto) 0.5 10 ^3/uL (0-0.8); Lymphocytes # (auto) 1.2 10 ^3/uL (0.4-5.4); Monocytes # (auto) 0.6 10 ^3/uL (0-1.3); White Blood Cell 5.3 10^3/uL (4.4-10.8)
[2024-08-02 07:16] LABS: Eosinophils % (auto) 9.2 % (0.0-7.0); Hemoglobin 9.3 g/dL (12.2-16.2); Lymphocytes % (auto) 21.8 % (10.0-50.0); Mean Corpuscular Hemoglobin 26.3 pg (28.0-32.0); Mean Corpuscular Hgb Conc. 33.1 g/dL (32.0-36.0); Mean Corpuscular Volume 79.5 fL (80.0-100.0); Monocytes % (auto) 11.7 % (0.0-12.0); Neutrophils % (auto) 56.1 % (37.0-80.0); Nucleated Red Blood Cells % 0.1 %; Platelet Count (auto) 301 10^3/uL (140-450); Red Blood Cells 3.52 10^6/uL (4.0-5.20); Red Cell Distribution Width 18.4 % (11.8-14.3)
[2024-08-02 07:18] LABS: Anion Gap 8 (5-15); Carbon Dioxide 20 mmol/L (20-30); Chloride 110 mmol/L (98-107); Potassium 4.1 mmol/L (3.5-5.1); Sodium 138 mmol/L (136-145)
[2024-08-02 07:19] LABS: Calcium 9.5 mg/dL (8.7-10.4)
[2024-08-02 07:23] LABS: Glucose 121 mg/dL (74-106)
[2024-08-02 07:24] LABS: BUN/Creatinine Ratio 13.9 (10.0-20.0); Blood Urea Nitrogen 15 mg/dL (9-23)
[2024-08-02 07:25] LABS: % Iron Saturation 6.1 % (15-50)
[2024-08-02] MEDS: FLUCONAZOLE 100 MG TAB PO SCH (10:12)
[2024-08-02] MEDS: RIVAROXABAN 2.5 MG TAB PO SCH (10:20)
[2024-08-02] MEDS ORDERED: HYDR-3682 PO (10:29)
[2024-08-02] MEDS: IRON SUCROSE COMPLEX 100 ML IV SCH (11:36)
== END 2024-08-02 19:38 | disposition home health service (06) | DRG 871 ==
LOC: ER 14:48 → EDBD 14:48 → TELE 21:33 → MERGE 21:33 → TELE-CENTR 07-30 01:10 → CENTRAL 07-30 19:27
PROVIDERS: ADMIT Internal Medicine; ATTEND Internal Medicine
DX: A41.9 Sepsis, unspecified organism (principal); G93.41 Metabolic encephalopathy; N17.0 Acute kidney failure with tubular necrosis; E87.1 Hypo-osmolality and hyponatremia; N39.0 Urinary tract infection, site not specified; E87.20 Acidosis, unspecified; D68.59 Other primary thrombophilia; E11.65 Type 2 diabetes mellitus with hyperglycemia; Z20.822 Contact with and (suspected) exposure to COVID-19; E78.5 Hyperlipidemia, unspecified; I34.81 Nonrheumatic mitral (valve) annulus calcification; E86.1 Hypovolemia; I13.10 Hypertensive heart and chronic kidney disease without heart failure, with stage 1 through stage 4 chronic kidney disease, or unspecified chronic kidney disease; E11.22 Type 2 diabetes mellitus with diabetic chronic kidney disease; D64.9 Anemia, unspecified; N18.30 Chronic kidney disease, stage 3 unspecified; S81.801A Unspecified open wound, right lower leg, initial encounter; X58.XXXA Exposure to other specified factors, initial encounter; Z93.3 Colostomy status; Z88.2 Allergy status to sulfonamides; Z88.0 Allergy status to penicillin; Z88.8 Allergy status to other drugs, medicaments and biological substances; Z95.0 Presence of cardiac pacemaker; Y93.89 Activity, other specified; Y92.89 Other specified places as the place of occurrence of the external cause; Y99.8 Other external cause status
CPT/HCPCS: 36415; 36600; 70450; 71045; 72131; 76775; 80048; 80053; 80061; 81001; 82043; 82140; 82306; 82570; 82607; 82728; 82746; 82805; 82962; 83036; 83540; 83550; 83605; 83615; 83735; 83880; 83930; 83935; 83970; 84100; 84133; 84156; 84295; 84300; 84443; 84484; 85007; 85025; 85027; 85045; 85610; 85730; 87040; 87081; 87086; 87088; 87426; 87804; 93005; 93306; 97163; G0378; J1756; J1815; J3490